=== PATIENT | female | born 1995 | race Caucasian/White ===

== ENCOUNTER 2023-11-28 07:01 | Outpatient (CLI) | payer MEDICAID, SELFPAY ==
--- NOTE | 2023-11-28 07:15 | US_ITS ---
Patient: TALIB POOL Facility:?[facility] Patient ID:?[id number] Site Patient ID:?[id number]. Site :?[id number] Study:?US-OB Pelvis dating-11/28/2023 7:37:29 AM Ordering Physician:Clarice Bennett Final Report: INDICATION: First trimester scan, establish dates. COMPARISON: None. TECHNIQUE: Real-time castellanos-scale imaging of the pelvis was performed. FINDINGS: Sonographic imaging demonstrates a single living intrauterine gestation. The embryo demonstrates a regular cardiac rate measuring 155 beats per minute. The embryo`s crown-rump length measurement of 1.7 cm corresponds to a gestational age of 8 weeks 0 days with a sonographic due date of 07/09/2024. There is a normal-appearing yolk sac. There are no gross abnormalities noted within the embryo at this early state of development. The gestational sac has a normal appearance. There is no evidence of a perigestational hemorrhage. The amount of fluid within the sac appears appropriate for gestational age. The cervix is closed. The myometrium appears normal. The ovaries are of normal size. Corpus luteal cyst right ovary measures 1.9 x 1.5 x 1.2 cm. There are no suspicious fluid collections noted in the cul-de-sac. IMPRESSION: Normal first trimester OB ultrasound exam. Gestational age calculated at 8 weeks 0 days with a sonographic due date of 07/09/2024. Dictated by Darvin Loza MD @ 11/28/2023 10:09:56 AM Signed by:?Darvin Loza MD @11/28/2023 10:09:56 AM (Electronic Signature)
== END 2023-11-28 07:02 | disposition home or self-care (01) ==
LOC: US 07:01
PROVIDERS: Visit Provider Advanced Practice Midwife
DX: Z34.91 Encounter for supervision of normal pregnancy, unspecified, first trimester (principal); Z3A.08 8 weeks gestation of pregnancy
CPT/HCPCS: 76817

== ENCOUNTER 2023-11-28 09:15 | Outpatient (CLI) | payer MEDICAID, SELFPAY | END 2023-11-28 09:16 | disposition home or self-care (01) | LOC: NFLDREF 12-18 07:12 | PROVIDERS: Visit Provider Advanced Practice Midwife | DX: Z34.91 Encounter for supervision of normal pregnancy, unspecified, first trimester (principal); Z3A.08 8 weeks gestation of pregnancy | CPT/HCPCS: 86592; 86703; 86704; 86706; 86762; 86787; 86803; 86850; 86900; 86901; 87086; 87340; 87491; 87591 ==

== ENCOUNTER 2024-01-12 09:00 | Outpatient (CLI) | payer MEDICAID, SELFPAY | END 2024-01-12 09:01 | disposition home or self-care (01) | LOC: NFLDREF 09:01 | PROVIDERS: PCP Advanced Practice Midwife; Visit Provider Advanced Practice Midwife | DX: N89.8 Other specified noninflammatory disorders of vagina (principal) | CPT/HCPCS: 87086 ==

== ENCOUNTER 2024-02-20 12:48 | Outpatient (CLI) | payer MEDICAID, SELFPAY ==
--- NOTE | 2024-02-20 13:00 | CRLHL7_ITS ---
For Patients: As a result of the Century Cures Act, medical imaging exams and procedure reports are released immediately into your electronic medical record. You may view this report before your referring provider. If you have questions, please contact your health care provider. INDICATION: Evaluate anatomy. COMPARISON: 11/28/2023 TECHNIQUE: Real time castellanos scale imaging of the fetus was performed as well as color Doppler analysis of the umbilical vessels. FINDINGS: Sonographic imaging demonstrates a single living intrauterine gestation. Fetus demonstrates a regular cardiac rate of 155 beats per minute. Fetus has a breech position. The placenta lies right anterior without evidence of placenta previa. Placental edge 5.7 cm from the internal cervical os. Amniotic fluid volume appears normal. Single deepest vertical pocket: 4.9 cm. The cervix is closed and measures 4.3 cm in length. The composite ultrasound gestational age is calculated at 19 weeks 5 days with an estimated sonographic due date of 07/11/2024. The estimated weight is 333 grams which lies at the 35th %. The following biometric measurements were obtained: Biparietal diameter: 4.4 cm/19 weeks 2 days 14th% Head circumference: 16.8 cm/19 weeks 3 days 11th% Abdominal circumference: 15.2 cm/20 weeks 3 days 48th% Femur length: 3.2 cm/20 weeks 0 day 32nd% The HC/AC ratio measures: 1.11 range (1.08-1.26) On anatomic survey, there is a normal appearance of the cerebral ventricles, cavum septi pellucidi, cisterna magna and cerebellum. The nose, lips, and facial profile appear normal. The cervical, thoracic and lumbar spine are well visualized and appear normal. There is a normal four-chamber heart view and the left and right ventricular outflow tracts appear normal. The diaphragm and stomach appear normal. The kidneys and bladder also appear normal. There is a normal three-vessel cord and cord insertion site. The four extremities appear normal. IMPRESSION: Normal OB ultrasound exam with concordance of clinical and sonographic dating. No intrinsic abnormalities noted on anatomic survey. Dictated by Darvin Loza MD @ 02/23/2024 8:48:33 AM (Electronically Signed)
== END 2024-02-20 12:49 | disposition home or self-care (01) ==
LOC: US 12:49
PROVIDERS: Visit Provider Advanced Practice Midwife
DX: Z34.92 Encounter for supervision of normal pregnancy, unspecified, second trimester (principal); Z3A.19 19 weeks gestation of pregnancy
CPT/HCPCS: 76805

== ENCOUNTER 2024-03-19 14:19 | Outpatient (CLI) | payer MEDICAID, SELFPAY | END 2024-03-19 14:20 | disposition home or self-care (01) | LOC: NFLDREF 14:20 | PROVIDERS: Visit Provider Midwife | DX: Z34.92 Encounter for supervision of normal pregnancy, unspecified, second trimester (principal); Z3A.24 24 weeks gestation of pregnancy | CPT/HCPCS: 84443 ==

== ENCOUNTER 2024-03-27 18:35 | Outpatient (CLI) | payer MEDICAID, SELFPAY ==
[2024-03-27 18:58] VITALS: PULSE 117; O2SAT 97
[2024-03-27 18:59] VITALS: BP 114/74; PULSE 114; TEMP 36.9
[2024-03-27 20:01] LABS: Appearance Urine Clear (Clear); Bilirubin Urine Negative (Negative); Blood Urine Negative (Negative); Color Urine Yellow (Yellow); Glucose Urine Negative (Negative); Ketones Urine Negative (Negative); Leukocyte Esterase Urine Negative (Negative); Nitrite Urine Negative (Negative); Protein Urine Negative (Negative); Urobilinogen Urine 0.2 (0.2-1.0); pH Urine 6.5 (5.0-8.5)
[2024-03-27 20:14] LABS: Amnisure Rom* Negative
--- NOTE | 2024-03-31 14:22 | PC.OBNST ---
NST Note NST Note Start: 03/27/24 18:49 Freq: ONCE Status: Discharge Protocol: Document 03/27/24 19:20 LAMARDDYH (Rec: 03/31/24 14:22 DAVIDYEsau Desktop) NST Note 2 Para (# of births) 0 EDC 07/07/24 Gestational Age In Weeks & Days 26 Weeks & 0 Days Patient Presented with Complaint(s) of Decreased movement Reactive Yes Appropriate for Gestational Age Yes RN Mika Roth RN Date 03/27/24 Reactive Yes Appropriate for Gestational Age Yes RN Missy Thomas RN Date 03/27/24 OB NST charge Yes Complete NST Note via Write Note Yes The provider's electronic signature indicates the NST is reactive/appropriate for gestational age. *Note to provider: If an addendum is required, open the patient's chart and click on the note under the Nurse/Allied Health tab.
== END 2024-03-27 20:40 | disposition home or self-care (01) ==
LOC: OB OUT 18:35 → OB 18:36
PROVIDERS: Visit Provider Advanced Practice Midwife
DX: J02.9 Acute pharyngitis, unspecified (principal)
CPT/HCPCS: 59025; 81003; 84112; G0463

== ENCOUNTER 2024-04-02 09:08 | Outpatient (CLI) | payer MEDICAID, SELFPAY | END 2024-04-02 09:09 | disposition home or self-care (01) | LOC: NFLDREF 04-07 13:53 | PROVIDERS: Visit Provider Advanced Practice Midwife | DX: Z34.92 Encounter for supervision of normal pregnancy, unspecified, second trimester (principal); Z3A.26 26 weeks gestation of pregnancy | CPT/HCPCS: 86592 ==

== ENCOUNTER 2024-05-06 07:35 | Outpatient (CLI) | payer MEDICAID, SELFPAY ==
[2024-05-06 08:03] VITALS: PULSE 103; O2SAT 97
[2024-05-06 08:07] VITALS: BP 118/67; PULSE 103
[2024-05-06 08:24] LABS: Appearance Urine Clear (Clear); Bilirubin Urine Negative (Negative); Blood Urine Negative (Negative); Color Urine Yellow (Yellow); Glucose Urine Negative (Negative); Ketones Urine Negative (Negative); Leukocyte Esterase Urine 2+ (Negative); Nitrite Urine Negative (Negative); Protein Urine Negative (Negative); Specific Gravity Urine 1.015 (1.000-1.030); Urobilinogen Urine 0.2 (0.2-1.0); pH Urine 7.5 (5.0-8.5)
[2024-05-06 08:39] LABS: RBC Urine 0-2 (0-2)
[2024-05-06 08:40] LABS: Amorphous Sediment Urine Few; Bacteria Urine Moderate; Squamous Epithelial Cell Urine Many (None-Few)
[2024-05-06 08:46] LABS: Clue Cells No Clue Cells Seen (None Seen); Trichomonas No Trichomonas Seen (None Seen); Yeast No Yeast Seen (None Seen)
--- NOTE | 2024-05-06 09:41 | PC.OBNST ---
NST Note NST Note Start: 05/06/24 07:46 Freq: ONCE Status: Active Protocol: Document 05/06/24 09:20 PIERCE (Rec: 05/06/24 09:40 PIERCE Desktop) NST Note 2 Para (# of births) 0 EDC 07/07/24 Gestational Age In Weeks & Days 31 Weeks & 1 Days Patient Presented with Complaint(s) of Contractions/cramping,Other Other Complaints Pt. presents with menstral like cramping yesterday/last evening and pelvic pressure/ pain (has been feeling this for a couple weeks) Reactive Yes Appropriate for Gestational Age Yes CARLOS Avelar Date 05/06/24 Reactive Yes Appropriate for Gestational Age Yes CARLOS Florez RN Date 05/06/24 OB NST charge Yes Complete NST Note via Write Note Yes The provider's electronic signature indicates the NST is reactive/appropriate for gestational age. *Note to provider: If an addendum is required, open the patient's chart and click on the note under the Nurse/Allied Health tab.
== END 2024-05-06 09:25 | disposition home or self-care (01) ==
LOC: OB OUT 07:36 → OB 07:37
PROVIDERS: Visit Provider Advanced Practice Midwife
DX: O47.03 False labor before 37 completed weeks of gestation, third trimester (principal); Z3A.31 31 weeks gestation of pregnancy
CPT/HCPCS: 59025; 81001; 81003; 87086; 87210; G0463

== ENCOUNTER 2024-05-14 11:33 | Outpatient (CLI) | payer MEDICAID, SELFPAY ==
--- NOTE | 2024-05-14 11:30 | CRLHL7_ITS ---
For Patients: As a result of the Century Cures Act, medical imaging exams and procedure reports are released immediately into your electronic medical record. You may view this report before your referring provider. If you have questions, please contact your health care provider. INDICATION: Third trimester scan, evaluate growth. large for dates, ADHD meds COMPARISON: 02/20/2024 TECHNIQUE: Real time castellanos scale imaging of the fetus was performed. FINDINGS: Sonographic imaging demonstrates a single living intrauterine gestation. Fetus demonstrates a regular cardiac rate of 150 beats per minute. Fetus has a vertex position. The placenta lies posteriorly. Amniotic fluid volume appears normal and there is a single deepest vertical pocket: 6.7 cm. The estimated weight is 2422gm which lies at the 95th %. On the prior OB ultrasound exam dated 02/20/2024 the estimated weight was at the 35th%. BPD 85th percentile. HC 83rd percentile. AC greater than 97th percentile. FL 62nd percentile. The HC/AC ratio measures 1.01 range (0.94-1.11). IMPRESSION: Sonographic gestational age 34 weeks 2 days and a sonographic due date of 06/23/2024. Sonographic age 2 weeks ahead of the clinical age. Estimated weight 95th percentile. Abdominal circumference greater than 97th percentile. Dictated by Darvin Loza MD @ 05/14/2024 1:42:01 PM (Electronically Signed)
== END 2024-05-14 11:34 | disposition home or self-care (01) ==
LOC: US 11:34
PROVIDERS: Visit Provider Advanced Practice Midwife
DX: O36.63X0 Maternal care for excessive fetal growth, third trimester, not applicable or unspecified (principal); O99.343 Other mental disorders complicating pregnancy, third trimester; F90.9 Attention-deficit hyperactivity disorder, unspecified type; Z3A.34 34 weeks gestation of pregnancy
CPT/HCPCS: 76816

== ENCOUNTER 2024-05-24 13:00 | Outpatient (CLI) | payer MEDICAID, SELFPAY | END 2024-05-24 13:01 | disposition home or self-care (01) | LOC: NFLDREF 05-27 07:52 | PROVIDERS: Visit Provider Advanced Practice Midwife | DX: N39.0 Urinary tract infection, site not specified (principal) | CPT/HCPCS: 87086 ==

== ENCOUNTER 2024-05-24 14:02 | Outpatient (CLI) | payer MEDICAID, SELFPAY ==
[2024-05-24 14:25] VITALS: BP 122/80; PULSE 112; TEMP 36.6
[2024-05-24 14:26] VITALS: PULSE 114; O2SAT 98
[2024-05-24 14:42] LABS: Hemoglobin* 12.6 gm/dL (12.0-16.0)
[2024-05-24 15:09] VITALS: PULSE 100; O2SAT 100
--- NOTE | 2024-05-24 15:26 | CRLHL7_ITS ---
For Patients: As a result of the Cures Act, medical imaging exams and procedure reports are released immediately into your electronic medical record. You may view this report before your referring provider. If you have questions, please contact your health care provider. Indication: NON-REACTIVE NST BUTCH: 07/07/2024. Technique: Real-time sonographic images of the pelvis were obtained transabdominally using grayscale, color, and Doppler imaging. Comparison: Report 05/14/2024. Findings: A single intrauterine is present in cephalic position. Cardiac activity in the fetus is demonstrated at 134 BPM. Placenta: Anterior and posterior, suspected succenturiate lobe. No previa or abruption. Amniotic Fluid: Single deepest pocket measures 7.2 centimeter. Biophysical profile: Breathin/2 Movement: 2/2 Tone: 2/2 Fluid volume: 2/2 Total: 02/18 Impression: 1. Single living intrauterine gestation in cephalic presentation, with heartrate 134 BPM. 2. Possible succenturiate placenta without previa or abruption. 3. Amniotic fluid with single deepest pocket measuring 7.2 centimeter. 4. BPP /. Dictated by Michael Ortiz MD @ 05/24/2024 5:51:23 PM (Electronically Signed)
--- NOTE | 2024-05-24 16:25 | P.OBLDTN_ITS ---
OB - Triage/Final Diagnosis Visit Information Date Seen: 05/24/24 Date of evaluation: 05/24/24 Narrative: The patient is a 28 year old 2 para 0010 at 33w5d weeks gestation by LMP confirmed by first tri US, who presents for surveillance. She was seen in clinic today and persistent tachycardia was audible. The provider also noted an irregular heart beat. This prompted a NST that was consistent with tachycardia with possible decelerations. She arrived here with undetermined baseline and requested continued monitoring. Ashia has noted occasion intermittent cramping. No dysuria, vaginitis symptoms. No fever. She does vape and has been trying to cut back. She was vaping just prior to arriving at the clinic. HGB will be drawn here in triage. UA run in clinic. problems: # Obesity, NOB BMI 38.4 A1C: 4.9 Consider weekly BPP/NST at 37 weeks taking baby ASA # ADHD. On Vyvanse, stopped Adderall with +UPT. Offer growth US 32w or sooner as indicated: LGA 94.6% with HC 83%, AC >97%--LGA #LGA EFW 94.6% with HX 83%, AC >97% measuring ahead at 33.5 wks follow up US 36 weeks # Smoker. Quit cigarettes but still vaping. Encouraged Vit C. # Asymptomatic tachycardia. Has had a negative workup in the past. LGA (large for gestational age) fetus (Acute) Fatigue (Acute) ?R53.83 - Other fatigue (ICD-10) (Acute) ?Z34.90 - Encounter for supervision of normal , unspecified, unspec ified trimester (ICD-10)Obesity (BMI 30-39.9) (Acute) ?E66.9 - Obesity, unspecified (ICD-10)Symptomatic tachycardia (Acute) Has never been symptomatic. Has been worked up in the past. ?R00.0 - Tachycardia, unspecified (ICD-10)ADHD (Acute) Quit Adderall with +UPT, on Vyvanse ?F90.9 - Attention-deficit hyperactivity disorder, unspecified type (ICD- 10)Tobacco abuse (Acute) quit cigarettes but still vaping ?Z72.0 - Tobacco use (ICD-10)Vapes nicotine containing substance (Acute) ?Z72.0 - Tobacco use (ICD-10) ASSESSMENT: 28yo at 33w5d weeks gestation complicated by: Vaping, ADHD, Obesity, LGA Eventually Reactive NST with normal baseline BPP 04/22 PLAN: 1. discharge to home 2. Enc cessation of vaping with support given 3. continue plan for surveillance 4. Pt agrees with plan and has no furhter questions. Reason for evaluation: other (equivocal NST) Evaluation Laboratory results: Laboratory Tests 05/24/24 Range/Units 14:35 Hgb 12.6 (12.0-16.0) gm/dL Vital signs: Vital Signs - 24 hr 05/24/24 14:25 05/24/24 14:26 05/24/24 15:09 Temperature 97.9 F Pulse Rate 112 H Blood Pressure 122/80 Pulse Oximetry 98 100 Comments: Vitals Reviewed Constitutional:? Alert and oriented x3 HEENT:? Normocephalic, atraumatic Neck:? Supple Lungs:? Clear to auscultation bilaterally Heart:? Regular rate and rhythm, no murmur, rub or gallop Abdomen:? Soft, nontender, and gravid. Vertex by Jesus's. Extremities:? No edema or erythema NST: 125 bpm/moderate variability/accelerations present/decelerations abse nt/contractions irregular irritability Final Diagnosis (1) Obesity (BMI 30-39.9): Status: Acute (2) : Status: Acute (3) LGA (large for gestational age) fetus: Status: Acute (4) Vapes nicotine containing substance: Status: Acute (5) ADHD: Status: Acute Problem details: Quit Adderall with +UPT, on Vyvanse (6) Non-reassuring electronic monitoring tracing: Status: Acute
--- NOTE | 2024-05-24 17:09 | PC.OBNST ---
NST Note NST Note Start: 05/24/24 14:24 Freq: ONCE Status: Active Protocol: Document 05/24/24 16:55 HCR (Rec: 05/24/24 17:08 HCR [id number]) NST Note 2 Para (# of births) 0 EDC 07/07/24 Gestational Age In Weeks & Days 33 Weeks & 5 Days Patient Presented with Complaint(s) of Other Other Complaints Sent from clinic for further monitoring. Reactive Yes Appropriate for Gestational Age Yes CARLOS Corbin RN Date 05/24/24 Reactive Yes Appropriate for Gestational Age Yes CARLOS Fischer CNM Date 05/24/24 OB NST charge Yes Complete NST Note via Write Note Yes The provider's electronic signature indicates the NST is reactive/appropriate for gestational age. *Note to provider: If an addendum is required, open the patient's chart and click on the note under the Nurse/Allied Health tab.
== END 2024-05-24 16:59 | disposition home or self-care (01) ==
LOC: OB OUT 14:03 → OB 14:04
PROVIDERS: Advanced Practice Midwife; Visit Provider Midwife
DX: O36.8390 Maternal care for abnormalities of the fetal heart rate or rhythm, unspecified trimester, not applicable or unspecified (principal); Z3A.33 33 weeks gestation of pregnancy
CPT/HCPCS: 36415; 59025; 76819; 85018; G0463

== ENCOUNTER 2024-06-07 09:13 | Outpatient (CLI) | payer MEDICAID, SELFPAY ==
--- NOTE | 2024-06-07 09:15 | CRLHL7_ITS ---
For Patients: As a result of the Century Cures Act, medical imaging exams and procedure reports are released immediately into your electronic medical record. You may view this report before your referring provider. If you have questions, please contact your health care provider. INDICATION: Third trimester scan, evaluate growth. Large for gestational age. COMPARISON: 05/24/2024 TECHNIQUE: Real time castellanos scale imaging of the fetus was performed. FINDINGS: Sonographic imaging demonstrates a single living intrauterine gestation. Fetus demonstrates a regular cardiac rate of 142 beats per minute. Fetus has a vertex position. The placenta lies posteriorly. Amniotic fluid volume appears normal and there is a single deepest vertical pocket: 6.5 cm. The estimated weight is 3009gm which lies at the 77th %. On the prior OB ultrasound exam dated 05/14/2024 the estimated weight was at the 95th%. BPD 84th percentile. HC 57th percentile. AC 96th percentile. FL 10th percentile. The HC/AC ratio measures 0.97 range (0.92-1.06). IMPRESSION: Sonographic gestational age 36 weeks 4 days and sonographic due date 07/01/2024. Sonographic age 6 days ahead of the clinical age. Estimated weight 77th percentile. Abdominal circumference is 96th percentile. Dictated by Darvin Loza MD @ 06/07/2024 10:14:06 AM (Electronically Signed)
== END 2024-06-07 09:14 | disposition home or self-care (01) ==
LOC: US 09:14
PROVIDERS: Visit Provider Advanced Practice Midwife
DX: O36.63X0 Maternal care for excessive fetal growth, third trimester, not applicable or unspecified (principal); Z3A.36 36 weeks gestation of pregnancy
CPT/HCPCS: 76816

== ENCOUNTER 2024-06-07 11:14 | Outpatient (CLI) | payer MEDICAID, SELFPAY ==
[2024-06-08 08:15] LABS: Strep B DNA Probe Negative (Negative)
[2024-06-08 09:07] LABS: Strep B Susceptibility Needed? No
== END 2024-06-07 11:15 | disposition home or self-care (01) ==
PROVIDERS: Visit Provider Midwife
DX: O36.63X0 Maternal care for excessive fetal growth, third trimester, not applicable or unspecified (principal); Z3A.36 36 weeks gestation of pregnancy
CPT/HCPCS: 82565; 82570; 84156; 84450; 84460; 84520; 84550; 87081; 87653

== ENCOUNTER 2024-06-09 13:08 | Outpatient (CLI) | payer MEDICAID, SELFPAY ==
[2024-06-09 13:24] VITALS: PULSE 120; O2SAT 97
[2024-06-09 13:29] VITALS: PULSE 120; O2SAT 98
[2024-06-09 13:33] VITALS: BP 120/69; PULSE 118
[2024-06-09 13:34] VITALS: PULSE 117; RESP 18; TEMP 36.8; O2SAT 97
[2024-06-09 13:48] VITALS: BP 112/64; PULSE 107
[2024-06-09] MEDS: METOCLOPRAMIDE 10 MG TABLET PO (13:58)
[2024-06-09] MEDS: ACETAMINOPHEN 500 MG TABLET 1000 MG PO (13:58)
[2024-06-09 14:19] VITALS: BP 107/75; PULSE 99
--- NOTE | 2024-06-09 15:39 | PC.OBNST ---
NST Note NST Note Start: 06/09/24 13:12 Freq: ONCE Status: Active Protocol: Document 06/09/24 15:33 PIERCE (Rec: 06/09/24 15:39 PIERCE Desktop) NST Note 2 Para (# of births) 0 EDC 07/07/24 Gestational Age In Weeks & Days 36 Weeks & 0 Days High Risk Factors High Blood Pressure - Gestational Patient Presented with Complaint(s) of Headache Other Complaints Pt. has newly diagnosed Pre E on Thursday 06/07. Suffers from frequent persistent Headache and complains of GARCIA today. Pt. had gotten a BP of 125/97 and 128/96 at home today. We have discussed using a larger cuff . Reactive Yes Appropriate for Gestational Age Yes CARLOS Avelar Date 06/09/24 Reactive Yes Appropriate for Gestational Age Yes CARLOS Hayes Date 06/09/24 OB NST charge Yes Complete NST Note via Write Note Yes The provider's electronic signature indicates the NST is reactive/appropriate for gestational age. *Note to provider: If an addendum is required, open the patient's chart and click on the note under the Nurse/Allied Health tab.
== END 2024-06-09 15:13 | disposition home or self-care (01) ==
LOC: OB OUT 13:09 → OB 13:09
PROVIDERS: Visit Provider Advanced Practice Midwife
DX: O10.913 Unspecified pre-existing hypertension complicating pregnancy, third trimester (principal); R51.9 Headache, unspecified; O14.93 Unspecified pre-eclampsia, third trimester; Z3A.36 36 weeks gestation of pregnancy
CPT/HCPCS: 59025; G0463; A9270

== ENCOUNTER 2024-06-11 13:35 | Outpatient (CLI) | payer MEDICAID, SELFPAY ==
--- NOTE | 2024-06-11 13:45 | CRLHL7_ITS ---
For Patients: As a result of the Cures Act, medical imaging exams and procedure reports are released immediately into your electronic medical record. You may view this report before your referring provider. If you have questions, please contact your health care provider. OB BIOPHYSICAL PROFILE, 06/11/2024 CLINICAL HISTORY: HTN. BUTCH by LMP: 07/07/24. GA: 36 weeks, 2 days. COMPARISON: 06/07/24, 05/24/24. TECHNIQUE: Transabdominal. FINDINGS: Cervix: Not visualized. positioning: Vertex. Amniotic fluid: 6.2 cm. Placenta: Transabdominal. Dopplers: heart rate: 157 bpm. Biophysical Profile: Total score: 8 Gross body movements: 2 tone: 2 Respiratory activity: 2 Amniotic fluid: 2 IMPRESSION: 1. Normal biophysical profile score of 8/8. 2. There appears to be an anterior succenturiate lobe of the placenta as noted on the 05/24/2024 biophysical profile. Aravind Young M.D. Body/Diagnostic Radiologist [employer] [email or web address] Transcribed: 1:06 pm DW/Dictated by: Aravind Young MD @ 06/15/2024 11:11:00 AM (Electronically Signed)
== END 2024-06-11 13:36 | disposition home or self-care (01) ==
LOC: US 13:36
PROVIDERS: Visit Provider Advanced Practice Midwife
DX: O14.93 Unspecified pre-eclampsia, third trimester (principal); Z3A.36 36 weeks gestation of pregnancy
CPT/HCPCS: 76816; 76819

== ENCOUNTER 2024-06-14 14:14 | Outpatient (CLI) | payer MEDICAID, SELFPAY ==
[2024-06-14 14:16] VITALS: PULSE 117; O2SAT 100
[2024-06-14 14:33] VITALS: BP 125/77; PULSE 111
[2024-06-14 15:29] VITALS: BP 130/84; PULSE 96
[2024-06-14 15:37] LABS: Hemoglobin* 12.3 gm/dL (12.0-16.0); Mean Corpuscular HGB Conc 33 gm/dL (32-36); Mean Corpuscular Hemoglobin 29 pg (26-34); Mean Corpuscular Volume 88 fL (80-100); Platelet Count* 251 K/uL (140-440); Red Blood Count 4.21 m/uL (4.00-5.20); White Blood Count* 14.05 K/uL (4.50-11.00)
[2024-06-14 15:45] LABS: Slide Review Reflex No
[2024-06-14 15:57] LABS: Creatinine* 0.5 mg/dL (0.5-1.5); Estimated Glomerular Filt Rate 130 ml/min
[2024-06-14 15:58] LABS: Alanine Aminotransferase* 11 U/L (4-35); Aspartate Amino Transferase* 17 U/L (12-35); Blood Urea Nitrogen* 7 mg/dL (5-24)
[2024-06-14 16:02] LABS: Creatinine Urine 11.3 mg/dL; Protein Creatinine Ratio Urine 1.24 (0-0.19); Total Protein Urine 14 mg/dL
[2024-06-14 16:14] VITALS: BP 119/84; PULSE 107
[2024-06-14] MEDS: ACETAMINOPHEN 500 MG TABLET 1000 MG PO (16:38)
--- NOTE | 2024-06-14 16:46 | PC.OBNST ---
NST Note NST Note Start: 06/14/24 14:24 Freq: ONCE Status: Active Protocol: Document 06/14/24 14:24 [facility] (Rec: 06/14/24 16:45 [facility] No Response) NST Note 2 Para (# of births) 0 EDC 07/07/24 Gestational Age In Weeks & Days 36 Weeks & 5 Days High Risk Factors High Blood Pressure - Gestational Patient Presented with Complaint(s) of Headache Other Complaints tachycardic FHR in clinic Reactive Yes Appropriate for Gestational Age Yes RN Case RN Date 06/14/24 Reactive Yes Appropriate for Gestational Age Yes RN Cuddy RN Date 06/14/24 OB NST charge Yes Complete NST Note via Write Note Yes The provider's electronic signature indicates the NST is reactive/appropriate for gestational age. *Note to provider: If an addendum is required, open the patient's chart and click on the note under the Nurse/Allied Health tab.
== END 2024-06-14 16:50 | disposition home or self-care (01) ==
LOC: OB OUT 14:15 → OB 14:15
PROVIDERS: Visit Provider Advanced Practice Midwife
DX: O13.3 Gestational [pregnancy-induced] hypertension without significant proteinuria, third trimester (principal); Z3A.36 36 weeks gestation of pregnancy
CPT/HCPCS: 36415; 59025; 82565; 82570; 84156; 84450; 84460; 84520; 85027; G0463; A9270

== ENCOUNTER 2024-06-17 14:09 | Inpatient (IN) | payer MEDICAID, SELFPAY ==
[2024-06-17] VITALS (18 sets, daily range): BP systolic 116–134; BP diastolic 60–90; PULSE 75–126; RESP 16–20; TEMP 36.7–36.8; O2SAT 98–100; BMI 44.5
--- NOTE | 2024-06-17 15:05 | P.LDBA_ITS ---
Subjective History of Present Illness Date Seen: 06/17/24 Narrative: Patient is being admitted to Labor and Delivery for gross ROM at term. She is a 28 year old at 37w1d gestation. She was scheduled for an IOL for Pre- eclampsia later this evening. Her full history and physical was dictated by Dr. Bee on 06/14/2024. Please see this for details. She was diagnosed with pre- eclampsia prenatally and has been stable. She has been having GARCIA, treated with Tylenol and Reglan, but she believes they are related to her worsening eyesight in and she has not been wearing her glasses. She also reports an aura of crystals/prisms in her vision x 1 minute yesterday that resolved spontaneously. See problem list below. Specific Issues/Plans H&P done by Jp Amin CNM on 06/14/24 #Preeclampsia: Checking BP at home Twice weekly NST/BPP weekly Pre-e labs-last done 06/07 growth US done 06/07-see below IOL recommended at 37w-please schedule next visit # Obesity, NOB BMI 38.4 A1C: 4.9 Consider weekly BPP/NST at 37 weeks taking baby ASA # ADHD. On Vyvanse, stopped Adderall with +UPT. Offer growth US 32w or sooner as indicated: LGA 94.6% with HC 83%, AC >97% --LGA #LGA EFW 94.6% with HX 83%, AC >97% measuring ahead at 33.5 wks 06/07/2024: 35w5d US shows 77% EFT, AC>97% # Smoker. Quit cigarettes but still vaping. Encouraged Vit C. # Asymptomatic tachycardia. Has had a negative workup in the past. # Possible succenturiate placenta without previa or abruption. Seen on BPP US at 33.5wks anterior succenturiate lobe of the placenta seen with BPP on 06/14 TDAP: 05/14/24 Flu: declined Covid: declined RSV: at 32 weeks PHQ9/GAD7: Hgb: GBS: H&P: OB - Problem Based A/P Additional Plan (1) Preeclampsia: Status: Acute (2) LGA (large for gestational age) fetus: Status: Acute (3) : Status: Acute (4) Obesity (BMI 30-39.9): Status: Acute (5) ADHD: Problem details: Quit Adderall with +UPT, on Vyvanse Status: Acute (6) Tobacco abuse: Problem details: quit cigarettes but still vaping Status: Acute (7) Thin meconium stained amniotic fluid: Status: Acute Plan ASSESSMENT:?? 28 at 37w1d gestation?? complicated by:??Preeclampsia, Elevated BMI, LGA, ADHD, Nicotine use, thin MEC Labor type: SROM with augmentation, Not yet in labor?? Category 1 FHR pattern.??? Labor complicated by: thin mec, pre-e, LGA, Vyvanse use?? GBS negative ?? PLAN:?? 1. Routine intrapartum cares as ordered. Augmentation with pitocin for Pre-e after giving option of oral misoprostal also. Since ruptured, pitocin is as effective even if not yet ripe cervix. 2. Monitoring per policy, continuous 3. Planning medicated . Candidate for analgesia of choice.??? 4. Patient encouraged to reposition and ambulate to promote physiologic labor and .?? 5. Peds to be notified of thin mec, pre-e, LGA, Vyvanse use? 6. Anticipate , Dr Jiang aware patient is here with normal BP thus far and SROM thin mec. OB Result Labs Blood Type: O (+) positive Rubella: immune RPR/VDLR: nonreactive GBS Status: negative HBsAG: negative OB Exam Physical Exam Vital signs: Pulse BP Pulse Ox 111 H 117/69 99 06/17/24 14:32 06/17/24 14:32 06/17/24 14:25 Narrative: Vitals Reviewed Constitutional:? Alert and oriented x3 HEENT:? Normocephalic, atraumatic Neck:? Supple Lungs:? Clear to auscultation bilaterally Heart:? Regular rate and rhythm, no murmur, rub or gallop Abdomen:? Soft, nontender, and gravid. Vertex by Jesus's. Extremities:? No edema or erythema Cervix: deferred due to gross rupture NST: 135 bpm/moderate variability/accelerations present/decelerations absent/irregular contractions not felt by patient
[2024-06-17] MEDS: METOCLOPRAMIDE 10 MG TABLET PO (15:06)
[2024-06-17] MEDS: ACETAMINOPHEN 500 MG TABLET 1000 MG PO (15:06)
[2024-06-17 15:39] LABS: Basophils Percent Auto 0.3 % (0.0-3.0); Eosinophils Percent Auto 0.9 % (0.0-7.0); Hematocrit 36.2 % (33.0-51.0); Hemoglobin* 12.1 gm/dL (12.0-16.0); Immature Granulocytes Pct Auto 1.3 %; Lymphocytes Percent Auto 18.6 % (20-44); Mean Corpuscular HGB Conc 33 gm/dL (32-36); Mean Corpuscular Hemoglobin 29 pg (26-34); Mean Corpuscular Volume 86 fL (80-100); Monocytes Percent Auto 7.4 % (0.0-11.0); Neutrophils Percent Auto 71.5 % (42.0-72.0); Platelet Count* 273 K/uL (140-440); RDW Coefficient of Variation % 12.8 % (11.5-15.5); White Blood Count* 11.52 K/uL (4.50-11.00)
[2024-06-17 15:44] LABS: Slide Review Reflex No
[2024-06-17 15:53] LABS: Alanine Aminotransferase* 14 U/L (4-35); Aspartate Amino Transferase* 27 U/L (12-35); Blood Urea Nitrogen* 9 mg/dL (5-24); Creatinine* 0.5 mg/dL (0.5-1.5); Est. Creatinine Clearance* 155.42; Estimated Glomerular Filt Rate 130 ml/min
[2024-06-17] MEDS: OXYTOCIN 30 unit/500 ML in NS 30 UNIT/500 ML BAG IVPB (16:19)
[2024-06-17] MEDS: LACTATED RINGERS 1000 ML 1,000 ML 125 ML IV ×2 (16:20→23:34)
[2024-06-17] MEDS: hydrOXYzine pamoate 25 MG CAPSULE 100 MG PO (20:30)
[2024-06-17] MEDS: MORPHINE 10 MG/ML inj IM (23:06)
[2024-06-18] VITALS (81 sets, daily range): BP systolic 91–155; BP diastolic 57–96; PULSE 60–121; RESP 16–18; TEMP 36.6–37.2; O2SAT 93–100
--- NOTE | 2024-06-18 00:23 | PM.OBPNL ---
Subjective Date Seen: 06/18/24 Narrative: Jennifer is a 28 yo at 37w2d here for SROM (thin mec) for preeclampsia. She was scheduled for IOL, but came in ruptured. BP was initially normotensive but has increased with mild range elevations. Labs on admit were normal, but PCR was not drawn since patient was grossly ruptured. She has no new GARCIA, vision changes or RUQ pain. Last PCR was 1.24 on 06/14/2024. Jennifer is feeling contractions, but coping well, but feels like she has to have a BM. Gabriel is supportive at the bedside. She is planning to have an epidural at some point. Objective Exam: Objective: Constitutional: Alert and oriented x3, [mild/moderate/severe] distress, coping well Vital signs stable, see nurse documentation Abdomen: gravid, contractions palpate mild with contractions and soft between Cervix: 3.5 cm/90%/-1 station/vertex NST: 130 bpm/moderate variability/accelerations present/decelerations absent/contractions irregular Vital Signs: Last Vital Signs Temp 98.1 F 06/18/24 00:08 Pulse 60 06/18/24 00:08 Resp 20 06/17/24 19:49 BP 141/86 H 06/18/24 00:08 Pulse Ox 98 06/17/24 15:57 Plan Plan: ASSESSMENT:?? 28 at 37w2d gestation?? complicated by:??Preeclampsia, Elevated BMI, LGA, ADHD, Nicotine use, thin MEC Labor type: SROM with augmentation, Not yet in active labor?? Category 1 FHR pattern.??? Labor complicated by: thin mec, pre-e, LGA, Vyvanse use, mild BP elevations? GBS negative ?? PLAN:?? 1. Routine intrapartum cares as ordered. Pitocin currently at 8mu/min 2. Monitoring per policy, continuous 3. Planning medicated . Candidate for analgesia of choice.??? 4. Patient encouraged to reposition and ambulate to promote physiologic labor and .?? 5. Peds has been notified of thin mec, pre-e, LGA, Vyvanse use? 6. Anticipate
[2024-06-18] MEDS: ROPIVACAINE 0.2% 100 ml 100 ML 12 MG EPIDURAL ×2 (01:31→08:15)
[2024-06-18] MEDS: LIDOCAINE 2% (PF) 5 ML VIAL EPIDURAL (01:32)
--- NOTE | 2024-06-18 01:43 | PM.ANBPRC ---
[facility] Medical History Preeclampsia ?O14.90 - Unspecified pre-eclampsia, unspecified trimester (ICD-10) ADHD ?F90.9 - Attention-deficit hyperactivity disorder, unspecified type (ICD-10) Vapes nicotine containing substance ?Z72.0 - Tobacco use (ICD-10) Tobacco abuse ?Z72.0 - Tobacco use (ICD-10) Symptomatic tachycardia ?R00.0 - Tachycardia, unspecified (ICD-10) Obesity (BMI 30-39.9) ?E66.9 - Obesity, unspecified (ICD-10) Surgical History History of placement of ear tubes ?Z96.22 - Myringotomy tube(s) status (ICD-10) [place] teeth extracted ?K08.409 - Partial loss of teeth, unspecified cause, unspecified class (ICD-10) History of tonsillectomy and adenoidectomy ?Z90.89 - Acquired absence of other organs (ICD-10) Family History Brother Alcohol dependence Maternal Grandmother Breast cancer Mother Skin cancer Social History Narrative: SOCIAL 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 Caffeine: occasional, pop Drug Use: Denies past/present Chicken Pox: Yes as a child MRSA: Denies What is your current living situation?: I presently have a place to live Problems where you live: no known problems In the past 12 months, utilities in danger of being shut off: no In the past 12 mos, have been you worried that your food would run out before you had money to buy more?: never true In the past 12 mos, the food you bought just didn't last and you didn't have money to buy more?: never true Smoking Status: Former smoker How often does anyone, including family, friends and others, physically hurt you: never How often does anyone, including family, friends and others, insult or talk down to you: never How often does anyone, including family, friends and others, threaten you with harm: never How often does anyone, including family, friends and others, scream or curse at you: never Meds Home Medications and Allergies Home Medications ?Medication ?Instructions ?Recorded ?Confirmed ?Type PNV 153-FA 400 mcg-om3 35 mg-dha tab PO DAILY 11/28/23 06/14/24 History 25 mg-epa 5 mg-fish oil chew tablet ( Gummies) lisdexamfetamine 30 mg capsule 40 mg PO QDAY 11/28/23 06/17/24 History ascorbic acid (vitamin C) 500 mg 500 mg PO .QS 12/19/23 06/17/24 History capsule docusate sodium 50 mg capsule 50 mg PO QDAY 12/19/23 06/17/24 History (Stool Softener) aspirin 81 mg chewable tablet 81 mg PO QDAY 01/12/24 06/17/24 History magnesium 250 mg tablet 250 mg PO QDAY 01/16/24 06/17/24 History acetaminophen 500 mg tablet 500 mg PO Q6H PRN 06/11/24 06/17/24 History (Tylenol Extra Strength) Allergies Allergy/AdvReac Type Severity Reaction Status Date / Time nitrofurantoin (From Allergy Intermediate Anaphylaxis Verified 06/14/24 14:42 Macrobid) Results Labs Labs: Laboratory Results - last 24 hr 06/17/24 06/17/24 15:21 15:24 WBC 11.52 H RBC 4.20 Hgb 12.1 Hct 36.2 MCV 86 MCH 29 MCHC 33 RDW Coeff of Francisco 12.8 Plt Count 273 Neut % (Auto) 71.5 Lymph % (Auto) 18.6 L [place] % (Auto) 7.4 Eos % (Auto) 0.9 Baso % (Auto) 0.3 Neut # (Auto) 8.20 H Lymph # (Auto) 2.10 [place] # (Auto) 0.90 Eos # (Auto) 0.10 Baso # (Auto) 0.00 Abs Immat Gran (auto) 0.10 Imm/Tot Granulo (auto) 1.3 BUN 9 Creatinine 0.5 Estimated Creat Clear 155.42 Estimated GFR 130 AST 27 ALT 14 Blood Type O Positive Antibody Screen NEGATIVE Vital Signs Vital Signs: Last Vital Signs Temp 98.1 F 06/18/24 00:08 Pulse 98 06/18/24 01:41 Resp 20 06/17/24 19:49 BP 130/64 06/18/24 01:41 Pulse Ox 100 06/18/24 01:42 Weight: 125.191 kg Height: 167.64 cm Anesthesia Procedures Epidural Insertion Patient Location: OB Start Time: : Stop Time: 02:02 Start Date: 06/18/24 Stop Date: 06/18/24 Reason for Block: procedure for pain Patient Position: sitting Performed By: Teresa Ortiz Preanesthetic Checklist: IV checked, risks and benefits discussed, monitors and equipment checked, pre-op evaluation, timeout performed and anesthesia consent Prep: chlorhexidine gluconate Monitoring: blood pressure monitoring, continuous pulse oximetry and heart rate Approach: midline Vertebral Space: lumbar (1-5) Epidural Technique: JOLYNN saline Needle Type: Tuohy needle Injection Technique: continuous catheter (continuous catheter) Needle gauge: 17 Needle Length (cm): 10 cm Needle Insertion Depth (cm): 8 Catheter Gauge: 19 Catheter Type: multi-orifice Catheter at skin depth (cm): 15 Test Dose Result: negative and lidocaine 1.5% with epinephrine 1 to 200,000
[2024-06-18] MEDS: CALCIUM CARBONATE 500 MG CHEW PO ×4 (01:46→07:33)
[2024-06-18] MEDS: PHENYLEPHRINE 100 MCG/ML SYRINGE IVP (02:43)
[2024-06-18] MEDS: ACETAMINOPHEN 500 MG TABLET 1000 MG PO ×3 (05:32→22:24)
[2024-06-18] MEDS: METOCLOPRAMIDE 10 MG TABLET PO (05:32)
[2024-06-18] MEDS: LACTATED RINGERS 1000 ML 1,000 ML 125 ML IV (06:37)
--- NOTE | 2024-06-18 07:19 | PM.OBPNL ---
Subjective Date Seen: 06/18/24 Narrative: ?Jennifer is coping well with labor pain/contractions. Her epidural was recently rebolused and she is comfortable at this time. ?Gabriel is with her for support. ?She would like to continue with her epidural for comfort and pain management.?She is not having any pressure with contractions at this time. Objective Exam: VSS, afebrile General Appearance:? Calm, cooperative. ?No acute distress. ? Psychiatric Exam: Alert and oriented, appropriate affect Abdomen: Gravid Ctx: ?Q 2-3 min apart. ? ? ?Strong FHTs: ?Baseline: 135. ? ? Variability: moderate. ?Accels: +. ? ?Decels: ?-. SVE: anterior rim/100/0 bloody show Membranes: ?SROM ?X 18 hours Vital Signs: Last Vital Signs Temp 98.6 F 06/18/24 06:45 Pulse 102 H 06/18/24 07:15 Resp 20 06/17/24 19:49 BP 125/69 06/18/24 07:15 Pulse Ox 100 06/18/24 02:12 Assessment Assessment: active labor and induction ongoing Amniotic Membrane Status: SROM Status: Category l Plan Plan: Assessment:?? at 37.2 weeks gestation?? GBS negative Patient is coping well with challenges of labor.?? Labor type: Augmented, Active labor? Category 1 FHR pattern.? complicated by: Preeclampsia, Elevated BMI, LGA, ADHD, Nicotine use, thin MEC Labor type: SROM with augmentation, now in active labor Category 1 FHR pattern.??? Labor complicated by: thin mec, pre-e, LGA, Vyvanse use, mild BP elevations? GBS negative Plan:?? Continue with routine intrapartum cares as ordered.?? Patient encouraged to move and change positions to promote physiologic labor and .?? Epidural infusing per Anesthesia orders Anticipate progress to NVD. ?
--- NOTE | 2024-06-18 10:18 | PM.OBPNL ---
Subjective Time Seen by Provider: 10:18 Date Seen: 06/18/24 Narrative: ?Jennifer is coping with labor pain/contractions although she has not had good pain control over the last hour and complains of lower abdominal pain and back pain. ?Woo is with her for support. ?She would like to continue with her epidural for comfort and pain management.?Requested OB to come to bedside to evaluate if they can help turn baby, Jennifer has been pushing for 2 hours with good effort. position by exam feels persistently OT. Multiple position changes without change in station or position over the last hour. Objective Exam: VSS, afebrile General Appearance:? Calm, cooperative. ?No acute distress. ? Psychiatric Exam: Alert and oriented, appropriate affect Abdomen: Gravid Ctx: ?Q 3-5 min apart. ? ? ?Strong FHTs: ?Baseline: 135. ? ? Variability: moderate. ?Accels: +. ? ?Decels: ?-. SVE: 10/100/+1 Membranes: ?SROM thin mec at 1315 n 06/17/24 Vital Signs: Last Vital Signs Temp 98.1 F 06/18/24 07:35 Pulse 71 06/18/24 10:14 Resp 20 06/17/24 19:49 BP 141/85 H 06/18/24 10:14 Pulse Ox 98 06/18/24 10:05 Assessment Amniotic Membrane Status: SROM Status: Category l Plan Plan: Assessment:?? at 37.2 weeks gestation?? GBS neg Patient is coping with challenges of labor.?? Labor type: Augmented, Active labor? Category 1 FHR pattern.? complicated by: complicated by: Preeclampsia, Elevated BMI, LGA, ADHD, Nicotine use, thin MEC Labor type: SROM with augmentation, now in active labor Category 1 FHR pattern.?? ? Labor complicated by: thin mec, pre-e, LGA, Vyvanse use, mild BP elevations? GBS negative, maternal exhaustion and no change in station over last hour Plan:?? Dr. Crowe consulted, fetus URSULA by US and her exam Consulting with Dr. Duff for possible forceps delivery Continue with routine intrapartum cares as ordered.?? Patient encouraged to move and change positions to promote physiologic labor and .?? Anesthesia consult for additional pain control ?
--- NOTE | 2024-06-18 10:53 | P.OBCN_ITS ---
OB - CN: HPI Date of Consult Date Seen: 06/18/24 Patient: [facility] Patient Consult date: 06/18/24 Requesting Physician: Dinah Fischer CNM Primary Care Provider: Not a Local Provider Consult Narrative Narrative: The patient is a 28 year old G 1 P 0 woman at 37 weeks, 2 days gestation that was admitted to the Center on 06/17/24 for labor. She was diagnosed with preeclampsia without severe features during her intrapartum course. I was consulted by Lowell Amin CNM, for arrest of descent in suspicion of OT presentation. At the time of my initial evaluation, the patient had been pushing for 2 hours. During the 1st hour, she had notable descent of vertex. There was no descent during the 2nd hour. She began pushing at 8:10 a.m.. She has received an epidural, but it is currently insufficient in controlling pain. Her BMI at this time is 44.5. OB Problem list #Preeclampsia: Checking BP at home Twice weekly NST/BPP weekly Pre-e labs-last done 06/07 growth US done 06/07-see below IOL recommended at 37w-please schedule next visit # Obesity, NOB BMI 38.4 A1C: 4.9 Consider weekly BPP/NST at 37 weeks taking baby ASA # ADHD. On Vyvanse, stopped Adderall with +UPT. Offer growth US 32w or sooner as indicated: LGA 94.6% with HC 83%, AC >97%--LGA #LGA EFW 94.6% with HX 83%, AC >97% measuring ahead at 33.5 wks 06/07/2024: 35w5d US shows 77% EFT, AC>97% # Smoker. Quit cigarettes but still vaping. Encouraged Vit C. # Asymptomatic tachycardia. Has had a negative workup in the past. # Possible succenturiate placenta without previa or abruption. Seen on BPP US at 33.5wks anterior succenturiate lobe of the placenta seen with BPP on 06/14 History History 1 Elective abortions Para 0 Spontaneous abortions 1 Hx # Term Pregnancies Ectopic pregnancies Hx # Pregnancies Multiple births Number of Living Children 0 Past Pregnancies Del. Date GA/Weeks Outcome Route wt Inf Gender Labor Lgth Anesthesia Location Provider Compli Unknown spontaneous Delivery Date: Last Updated by: Clarice Whitehead CNM October 2022 Labs Blood type: O (+) positive Rubella: immune RPR/VDLR: nonreactive GBS status: negative HBsAG: negative OB Labs: Lab Assessment Start: 06/17/24 14:15 Freq: ONCE Status: Active Protocol: PC.OBGBS Activity Type Activity Date Activity User E-sign Co-sign Detail Recorded Client Recorded Date Recorded By Document 06/17/24 14:18 DEON Desktop 06/17/24 14:26 DEON 06/17/24 14:18 Lab Assessment GBS Status negative GBS Additional Criteria None Is Patient Allergic to Penicillin? No Susceptibility Studies Available? None No Treatment Needed OK Are Labs Available Yes Maternal Blood Type O Maternal RH Factor Positive Evaluate Maternal Rubella Immune Status Immune Maternal HIV Status Negative Maternal Syphillis (RPR) Status Negative PFSH PFS Medical History Preeclampsia ?O14.90 - Unspecified pre-eclampsia, unspecified trimester (ICD-10) ADHD ?F90.9 - Attention-deficit hyperactivity disorder, unspecified type (ICD-10) Vapes nicotine containing substance ?Z72.0 - Tobacco use (ICD-10) Tobacco abuse ?Z72.0 - Tobacco use (ICD-10) Symptomatic tachycardia ?R00.0 - Tachycardia, unspecified (ICD-10) Obesity (BMI 30-39.9) ?E66.9 - Obesity, unspecified (ICD-10) Surgical History History of placement of ear tubes ?Z96.22 - Myringotomy tube(s) status (ICD-10) [place] teeth extracted ?K08.409 - Partial loss of teeth, unspecified cause, unspecified class (ICD- 10) History of tonsillectomy and adenoidectomy ?Z90.89 - Acquired absence of other organs (ICD-10) Family History Brother Alcohol dependence Maternal Grandmother Breast cancer Mother Skin cancer Social History Narrative: SOCIAL 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 Caffeine: occasional, pop Drug Use: Denies past/present Chicken Pox: Yes as a child MRSA: Denies What is your current living situation?: I presently have a place to live Problems where you live: no known problems In the past 12 months, utilities in danger of being shut off: no In the past 12 mos, have been you worried that your food would run out before you had money to buy more?: never true In the past 12 mos, the food you bought just didn't last and you didn't have money to buy more?: never true Smoking Status: Former smoker How often does anyone, including family, friends and others, physically hurt you : never How often does anyone, including family, friends and others, insult or talk down to you: never How often does anyone, including family, friends and others, threaten you with harm: never How often does anyone, including family, friends and others, scream or curse at you: never Meds Home Medications and Allergies Home Medications ?Medication ?Instructions ?Recorded ?Confirmed ?Type PNV 153-FA 400 mcg-om3 35 mg-dha tab PO DAILY 11/28/23 06/14/24 History 25 mg-epa 5 mg-fish oil chew tablet ( Gummies) lisdexamfetamine 30 mg capsule 40 mg PO QDAY 11/28/23 06/17/24 History ascorbic acid (vitamin C) 500 mg 500 mg PO .QS 12/19/23 06/17/24 History capsule docusate sodium 50 mg capsule 50 mg PO QDAY 12/19/23 06/17/24 History (Stool Softener) aspirin 81 mg chewable tablet 81 mg PO QDAY 01/12/24 06/17/24 History magnesium 250 mg tablet 250 mg PO QDAY 01/16/24 06/17/24 History acetaminophen 500 mg tablet 500 mg PO Q6H PRN 06/11/24 06/17/24 History (Tylenol Extra Strength) Allergies Allergy/AdvReac Type Severity Reaction Status Date / Time nitrofurantoin (From Allergy Intermediate Anaphylaxis Verified 06/14/24 14:42 Macrobid) OB - H&P: Exam Physical Exam: Vital signs: Temp Pulse Resp BP Pulse Ox 98.1 F 86 20 139/88 98 06/18/24 07:35 06/18/24 10:45 06/17/24 19:49 06/18/24 10:45 06/18/24 10:05 Narrative: General: Appears very tired and pained Abdomen: Soft, gravid, cephalic, EFW 8 lbs Vaginal exam: complete, +2, some caput. By bedside US, OA position confirmed; on vaginal exam, URSULA tracing: Baseline 130, accelerations present, no decelerations, moderate variability OB - Results Labs Labs: Short CBC 06/17/24 Range/Units 15:24 WBC 11.52 H (4.50-11.00) K/uL Hgb 12.1 (12.0-16.0) gm/dL Hct 36.2 (33.0-51.0) % Plt Count 273 (140-440) K/uL BMP 06/17/24 15:21 BUN 9 Creatinine 0.5 Liver Function 06/17/24 Range/Units 15:21 AST 27 (12-35) U/L ALT 14 (4-35) U/L OB - CN: A/P Assessment and Plan (1) Preeclampsia: Status: Acute (2) LGA (large for gestational age) fetus: Status: Acute (3) : Status: Acute (4) Obesity (BMI 30-39.9): Status: Acute (5) ADHD: Problem details: Quit Adderall with +UPT, on Vyvanse Status: Acute (6) Tobacco abuse: Problem details: quit cigarettes but still vaping Status: Acute (7) Thin meconium stained amniotic fluid: Status: Acute (8) Arrested active phase of labor: Status: Acute Plan Arrest of descent, now nearly 3 hours in to 2nd stage. Inadequate pain control with epidural Reassuring status with category 1 tracing I offered Jennifer the options forceps assisted vaginal delivery or for indication arrest of descent. I briefly discussed the risks and benefits of forceps. She declined this intervention in favor of cesareans. We discussed risks of , including bleeding/hemorrhage, infection, damage to internal organs, uterine scarring, impact on future pregnancies, thromboembolism. Consent form was signed by patient. Cefazolin and azithromycin for preoperative prophylaxis. Lovenox for prophylaxis of thromboembolism at intermediate dosing schedule.
[2024-06-18] MEDS: AZITHROMYCIN 500 MG in 0.9 % SODIUM CHLORIDE 250 ml 250 ML 255 MG IVPB (11:40)
[2024-06-18] MEDS: CEFAZOLIN 1 GM inj 3 GM IVP (11:55)
[2024-06-18] MEDS: LOPERAMIDE HCL 2 MG CAPSULE 4 MG PO (12:25)
--- NOTE | 2024-06-18 12:34 | W.ANESCHARGE ---
Anesthesia Charges Start Date/Time Anesthesia Start Date: 06/18/24 Anesthesia Start Time: 11:44 Stop Date/Time Anesthesia Stop Date: 06/18/24 Anesthesia Stop Time: 13:25 Summary Emergency: MDA
--- NOTE | 2024-06-18 12:35 | W.PM.NB ---
Nerve Block Nerve Block Time Seen by Provider: 13:18 Date Seen: 06/18/24 Type of block requested by surgeon for post-operative analgesia: TAP Side: bilateral Time out performed: Yes Verification of patient name: Yes Verification of date of : Yes Site marking: site marked Name of person performing procedure: Rodger Continuous monitoring Was continuous monitoring of O2 sat, B/P, groundwater monitoring technician, recorded every 15 minutes?: Yes Procedure Checklist: sterile prep, needles and gloves Ultrasound guided. Images saved: Yes Medications given in 5ml increments after negative aspiration: Marcaine %: 0.25 mL: 30 Needle gauge: 20 and Exparel mL: 10 Patient tolerated procedure well: Yes Additional comments: Needle noted between internal oblique and transversus abdominus. Local spread visualized Block Charges Block Charge (with Pro Fee): TAP Bilateral Use of Ultrasound Machine for Block: Yes- US Guidance/pain block
[2024-06-18] MEDS: KETOROLAC 30 MG/ML inj IVP ×2 (13:04→19:31)
--- NOTE | 2024-06-18 13:32 | P.ANES_ITS ---
Anesthesia Charges Start Date/Time Anesthesia Start Date: 06/18/24 Anesthesia Start Time: 11:44 Stop Date/Time Anesthesia Stop Date: 06/18/24 Anesthesia Stop Time: 13:25 Summary Emergency: LEGAL SUPPORT MANAGER
--- NOTE | 2024-06-18 13:44 | P.OBPRC_ITS ---
Procedure Date of procedure: 06/18/24 Pre-op diagnosis: 37 weeks, 2 days gestation Arrest of descent Post-op diagnosis: same (Deeply impacted head) Procedure Done: Global Will [facility] bill your pro fee for this procedure?: Yes Blood Loss Measurement Type: QBL Bakri Used: No IV fluids (mL): 500 Urine Output (mL): 600 Urine Output Comment: blood-tinged Surgeon: Joan Crowe MD Anesthesia Type: Epidural Findings: 1. Deeply impacted head, requiring classical vertical extension of the hysterotomy and, ultimately, breech delivery 2. Female , OA presentation, Apgars of 8 and 8, weight 3275 g 3. Normal appearance of bilateral tubes and ovaries Procedure Name: Primary low-transverse with vertical extension into the active segment Procedure Description: PROCEDURE IN DETAIL: Patient was taken to the operating room with IV running. She received cefazolin and azithromycin in preoperative prophylaxis. Epidural anesthesia had previously been administered. Hernandez catheter was inserted. I manually elevated the head with my palm as much as possible on vaginal exam just prior to scrubbing. She was prepped and draped in the usual sterile fashion. Anesthesia was tested and found to be adequate. A low-transverse skin incision was made with a scalpel and carried through to th e underlying layer of fascia with the scalpel. The subcutaneous fat was dissected off the underlying fascia bluntly. The fascia was nicked in the midline with a scalpel, and this incision was extended laterally with scissors. The rectus muscles were in the midline. Peritoneum was identified and entered bluntly. Bovie was used to widen this opening laterally. Jose Luis O retractor was inserted and tightened down, providing excellent visualization of the lower uterine segment. The bladder reflection was found to be well below the planned site for hysterotomy. Low-transverse uterine incision was made with a scalpel. Incision was widened bluntly. The 's head was grasped through the hysterotomy. Several attempts were made to elevate the head to the level of the hysterotomy, all unsuccessful. I then guided the scrub nurse to elevate the infant's shoulders out of the pelvis bilaterally and attempted again to delivery the head through the hysterotomy, which was again unsuccessful. Finally, I extended the uterine incision vertically with bandage scissors. The Jose Luis O retractor was removed. The infant's breech was brought through the hysterotomy, followed by the 's body. The head was then delivered, taking care not to overextend the neck. Cord was clamped and cut after 30 seconds. was handed off to attending pediatric provider. The placenta was delivered manually when gentle traction was not successful. The uterus was exteriorized and cleaned of all clots and debris with the dry lap pad. The hysterotomy and vertical extension were reapproximated with 0 Vicryl in a running, locked fashion. Second layer of the same suture was used in imbricating fashion to obtain hemostasis. Uterine atony was noted at this time, and was managed with Pitocin, tranexamic acid and Hemabate. The vertical extension was noted to be bleeding, which was addressed with additional sutures. The medial aspect of the left broad ligament had been sewn to the left edge of the hysterotomy, and this was released. Bleeding along the edge of the left round ligament was addressed with a whipstitch of 2-0 Chromic. Hemostasis was noted. The adnexa were examined and noted to be normal in appearance. The cul-de-sac was cleansed with laparotomy sponge. Uterus was returned to the abdomen. The pelvic gutters were cleansed with laparotomy sponge, removing any further clots and debris. The hysterotomy was reexamined and found to be hemostatic. Erista hemostatic agent was applied over the left aspect of the hysterotomy and over the vertical extension. The peritoneum was reapproximated with 2 0 Vicryl in a running fashion. The rectus muscles were examined and found to be hemostatic. The fascia was reapproximated with 0 Vicryl in a running fashion. Subcutaneous fat was irrigated and Bovie used on oozing vessels. The subcutaneous fat was reapproximated with 2 0 plain gut suture in an interrupted fashion. The skin was closed with a subcuticular stitch of 4-0 Monocryl. Five Steri strips, then a Silver dressing was applied above this. Patient tolerated procedure well was taken to recovery area in stable condition. Pathology: specimen obtained, sent to pathology Surgery Debrief Performed: Yes Surgery Debrief Comment: Postoperative debrief was verbalized with OR staff, including a verification of pathology specimens to be sent as described above. Infant total score - 1 minute: 7 total score - 5 minute: 8
[2024-06-18] MEDS: NICOTINE 7 MG PATCH 1 PATCH TRANSDERMA (15:25)
[2024-06-19 00:49] VITALS: BP 121/76; PULSE 118; RESP 18; TEMP 37
[2024-06-19] MEDS: KETOROLAC 30 MG/ML inj IVP ×4 (00:59→20:14)
[2024-06-19 03:41] VITALS: BP 119/85; PULSE 97; TEMP 37
[2024-06-19] MEDS: OXYCODONE 5 MG TABLET PO ×4 (03:50→18:34)
[2024-06-19] MEDS: ACETAMINOPHEN 500 MG TABLET 1000 MG PO ×3 (05:31→18:34)
[2024-06-19 07:13] LABS: Basophils Percent Auto 0.1 % (0.0-3.0); Eosinophils Percent Auto 0.7 % (0.0-7.0); Hematocrit 26.1 % (33.0-51.0); Hemoglobin* 8.6 gm/dL (12.0-16.0); Immature Granulocytes Pct Auto 0.9 %; Lymphocytes Percent Auto 17.1 % (20-44); Mean Corpuscular HGB Conc 33 gm/dL (32-36); Mean Corpuscular Hemoglobin 29 pg (26-34); Mean Corpuscular Volume 88 fL (80-100); Monocytes Percent Auto 9.6 % (0.0-11.0); Neutrophils Percent Auto 71.6 % (42.0-72.0); Platelet Count* 234 K/uL (140-440); RDW Coefficient of Variation % 13.2 % (11.5-15.5); Red Blood Count 2.96 m/uL (4.00-5.20); White Blood Count* 16.46 K/uL (4.50-11.00)
[2024-06-19 07:20] LABS: Slide Review Reflex No
[2024-06-19 07:30] LABS: Alanine Aminotransferase* 10 U/L (4-35); Aspartate Amino Transferase* 27 U/L (12-35); Blood Urea Nitrogen* 10 mg/dL (5-24); Creatinine* 0.5 mg/dL (0.5-1.5); Est. Creatinine Clearance* 155.42; Estimated Glomerular Filt Rate 130 ml/min
[2024-06-19] MEDS: DOCUSATE SODIUM 100 MG CAPSULE PO (08:10)
[2024-06-19 08:15] VITALS: BP 120/83; PULSE 97; RESP 18; TEMP 36.7; O2SAT 97
[2024-06-19] MEDS: FERROUS SULFATE 325 MG TABLET PO (10:58)
--- NOTE | 2024-06-19 13:25 | P.OBPN_ITS ---
OB - PN:Subj Subjective Date Seen: 06/19/24 Patient comments OB post-: pain well controlled, tolerating diet and flatus present infant status: Narrative: Ashia is a 28 y.o. who was admitted to [facility] for IOL due to preeclampsia w/o severe features. ?She had a complicated , deeply impacted head, requiring hysterotomy vertical extension and breech delivery.?The patient feels well. ?The pain is well controlled with current medications. ?She has no new complaints. ?She is breast feeding and reports things are going well.? the patient has done well.? Vitals have been stable.? She has remained afebrile.? Has a good appetite, is tolerating a general diet. ?She is voiding without difficulty.? She is passing gas and has not had a bowel movement.? She is ambulating and denies any dizziness.? Has Small amount of rubra lochia. Does note increased swelling of lower extremities. 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 OB - PN: Obj Exam Physical Exam: Vital signs: Temp Pulse Resp BP Pulse Ox O2 Del Method 98.0 F 97 18 120/83 97 Room Air 06/19/24 08:15 06/19/24 08:15 06/19/24 08:15 06/19/24 08:15 06/19/24 08:15 06/19/24 08:15 Narrative: GENERAL APPEARANCE:? normal affect, alert, no distress MOOD:? appropriate CHEST:? clear to auscultation HEART:? regular rate and rhythm ABDOMEN:? soft, mildly distended, appropriately tender and the uterine fundus is At Umbilicus, Midline and is appropriate for the stage of recovery. EXTREMITIES:? Bilateral pitting edema +1. No pain, no abnormal skin changes. Incision: Covered by silver dressing, dry and clean. OB - PN: Obj Data Labs Labs: Laboratory Results - last 24 hr 06/19/24 06:44 WBC 16.46 H RBC 2.96 L Hgb 8.6 L Hct 26.1 L MCV 88 MCH 29 MCHC 33 RDW Coeff of Francisco 13.2 Plt Count 234 Neut % (Auto) 71.6 Lymph % (Auto) 17.1 L Arroyo % (Auto) 9.6 Eos % (Auto) 0.7 Baso % (Auto) 0.1 Neut # (Auto) 11.80 H Lymph # (Auto) 2.80 Arroyo # (Auto) 1.60 H Eos # (Auto) 0.10 Baso # (Auto) 0.00 Abs Immat Gran (auto) 0.10 Imm/Tot Granulo (auto) 0.9 BUN 10 Creatinine 0.5 Estimated Creat Clear 155.42 Estimated GFR 130 AST 27 ALT 10 OB - PN: A/P Delivery Assessment and Plan (1) Preeclampsia: Status: Acute Assessment and Plan: Continue with BP monitoring, HELLP labs repeated this morning and normal, will only repeat if there are concerns for severely elevated blood pressures or CIGARETTE CARTON SEALER irritability symptoms. Anemia, started on oral iron supplements every other day. (2) LGA (large for gestational age) fetus: Status: Acute (3) : Status: Acute (4) Obesity (BMI 30-39.9): Status: Acute (5) ADHD: Problem details: Quit Adderall with +UPT, on Vyvanse Status: Acute (6) Tobacco abuse: Problem details: quit cigarettes but still vaping Status: Acute (7) Thin meconium stained amniotic fluid: Status: Acute (8) Arrested active phase of labor: Status: Acute Plan day: 1 Plan: routine care
[2024-06-19 13:30] VITALS: BP 110/76; PULSE 100; RESP 18; TEMP 36.5; O2SAT 97
[2024-06-19] MEDS: NICOTINE 7 MG PATCH 1 PATCH TRANSDERMA ×2 (15:54→19:40)
[2024-06-19 16:20] VITALS: BP 120/86; PULSE 97; RESP 18; TEMP 36.5; O2SAT 100
[2024-06-19] MEDS: ENOXAPARIN 40 MG/0.4 ML INJ SUBCUT (18:39)
[2024-06-19 20:17] VITALS: BP 132/79; PULSE 106; RESP 16; TEMP 37.1
[2024-06-19] MEDS: CALCIUM CARBONATE 500 MG CHEW PO (20:24)
[2024-06-20] MEDS: OXYCODONE 5 MG TABLET PO ×3 (00:33→10:56)
[2024-06-20] MEDS: ACETAMINOPHEN 500 MG TABLET 1000 MG PO ×3 (00:34→14:27)
[2024-06-20] MEDS: CALCIUM CARBONATE 500 MG CHEW PO (00:38)
[2024-06-20 00:45] VITALS: BP 108/69; PULSE 130; RESP 18; TEMP 37
[2024-06-20 02:27] LABS: Rapid Plasma Reagin (RPR) Non Reactive (Non Reactive)
[2024-06-20] MEDS: IBUPROFEN 600 MG TABLET PO ×2 (04:42→10:55)
[2024-06-20 04:45] VITALS: BP 121/82; PULSE 105; TEMP 37.1
[2024-06-20] MEDS: ENOXAPARIN 40 MG/0.4 ML INJ SUBCUT (07:46)
[2024-06-20] MEDS: DOCUSATE SODIUM 100 MG CAPSULE PO (08:01)
[2024-06-20 09:30] VITALS: BP 114/78; PULSE 100; RESP 16; TEMP 36.7; O2SAT 96
--- NOTE | 2024-06-20 11:57 | P.DS_ITS ---
DS: Providers Provider Date Seen: 06/20/24 Date of admission: 06/17/24 14:09 Primary care physician: Not a Local Provider Admitting Clinician: Dinah Fischer CNM Consults: 06/18/24 10:52 Consult to Physician [CONS] Routine Comment: Consulting Provider: Joan Crowe Has provider been notified: Yes Attending Physician on discharge: Tea Bloom MD Date of Discharge: 06/20/24 DS: Diagnosis Discharge Diagnosis (1) Preeclampsia: Status: Acute (2) ADHD: Status: Acute Problem details: Quit Adderall with +UPT, on Vyvanse (3) Vapes nicotine containing substance: Status: Acute (4) S/P section: Status: Acute Exam Narrative: Exam Narrative: VITAL SIGNS: As noted above. GENERAL APPEARANCE: Alert, cooperative female in no acute distress. MOOD & AFFECT: Normal. HEART: Regular rate and rhythm without murmurs. LUNGS: Lungs are clear to auscultation bilaterally. No crackles, wheezes, or rhonchi. ABDOMEN: Well contracted uterus, appropriately tender, silver dressing in place, clean and dry. : Normal pp lochia. EXTREMITIES: Bilateral pitting edema +1. Well perfused. Nontender. NEURO: Intact. Const: Vital Signs, click to edit/add: Vital Signs - 24 hr 06/19/24 13:30 06/19/24 16:20 06/19/24 20:17 Temperature 97.7 F 97.7 F 98.8 F Pulse Rate [Pulse Oximeter] 100 97 106 H Respiratory Rate 18 18 16 Blood Pressure [Le ft Arm] 110/76 120/86 132/79 Pulse Oximetry 97 100 Oxygen Delivery Me thod Room Air Room Air 06/20/24 00:45 06/20/24 04:45 06/20/24 09:30 Temperature 98.6 F 98.7 F 98.1 F Pulse Rate [Pulse Oximeter] 130 H 105 H 100 Respiratory Rate 18 16 Blood Pressure [Le ft Arm] 108/69 121/82 114/78 Pulse Oximetry 96 Oxygen Delivery Me thod Room Air OB - DS: Summary Hospital Course Hospital Course: The patient is a 28 year old G 1 P 1001 at 37 1/7 weeks gestation that was admitted to the Center on 06/17/24 for IOL due to preeclampsia w/o severe features diagnosis . She had an complicated delivery delivery-deeply impacted head-with need for vertical hysterotomy extension and breech delivery. She delivered a viable female infant. She is breast feeding. the patient has done well. 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 Peripartum Data delivery method: Primary C/S; Labored Procedures: Procedures Operation Date: 06/18/24 11:45 Actual Procedure Side Surgeon p Primary Low Transverse Section with Classical Vertical Extension Joan Crowe MD complications: none Infant Gender: Female Discharge Plan: Home Status at Discharge Functional status at discharge: independent ambulation Overall status at discharge: patient is progressing back to baseline Time Spent with Patient Time attestation: Total time spent providing and/or coordinating discharge services: Time spent: Less than 30 minutes Discharge Plan Discharge Disposition: Home, Self-Care Date of Admission: 06/17/24 14:09 Consulting Providers: Lowell Amin Shannon T Primary Care Provider: Provider,Not a Local Condition: Stable Anticipated Discharge Date/Time: 06/20/24 12:02 Discharge Medications: New acetaminophen 500 mg Tablet 1,000 mg PO Q6H PRN (Reason: Pain) Qty: 30 0RF ferrous sulfate 325 mg (65 mg iron) Tablet 325 mg PO Q48H Qty: 30 0RF docusate sodium 100 mg Capsule 100 mg PO DAILY Qty: 30 0RF ibuprofen 600 mg Tablet 600 mg PO Q6H PRN (Reason: Pain) Qty: 30 0RF oxycodone 5 mg Tablet 5 - 10 mg PO Q4H PRN (Reason: Pain) Qty: 15 0RF Continued Gummies 400 mcg-35 mg- 25 mg-5 mg tablet,chewable 1 tab PO DAILY lisdexamfetamine 30 mg capsule 40 mg PO QDAY magnesium 250 mg tablet 250 mg PO QDAY ascorbic acid (vitamin C) 500 mg capsule 500 mg PO .QS Discontinued aspirin 81 mg tablet,chewable 81 mg PO QDAY metoclopramide HCl [Reglan] 10 mg tablet 10 mg PO Q6H PRN (Reason: headache) Qty: 30 2RF Patient Comments: Just sent in today Stool Softener 50 mg capsule 50 mg PO QDAY acetaminophen [Tylenol Extra Strength] 500 mg tablet 500 mg PO Q6H PRN Discharge Orders: Discharge Order (Routine); Ordered 06/20/24 Ordered By: Emily Bloom Patient Education: OB /Breast Feeding Additional Instructions: Measure blood pressures at home twice a day. Notify clinic if there are blood pressures persistently more than 140 systolics, 90s diastolics or if any symptoms such as headaches that do not go away with pain medication, visual changes such as dark spots in vision, pain in the upper abdomen-that moves towards the upper right side. Follow-up in clinic in 3-5 days after discharge for blood pressure check and removal of silver dressing. Follow-up in clinic in 2 weeks for incision check and follow-up. Follow-up in 6 weeks in clinic for regular visit. Activity Level: No Weight Bearing Activity Detail: No lifting more than 15-20 pounds, nothing vaginally for 6 weeks Discharge Diet: Regular Follow Up Appointments: Provider,Not a Local [Primary Care Provider] - Forms: [employer] Info Instructions
== END 2024-06-20 15:35 | disposition home or self-care (01) | DRG 787 ==
PROVIDERS: Obstetrics & Gynecology; Admitting Provider Midwife; Visit Provider Midwife
PROC: (CPT 59514; principal; 2024-06-18 11:30)
DX: O14.04 Mild to moderate pre-eclampsia, complicating childbirth (principal); D62 Acute posthemorrhagic anemia; O99.214 Obesity complicating childbirth; O77.0 Labor and delivery complicated by meconium in amniotic fluid; O64.0XX0 Obstructed labor due to incomplete rotation of fetal head, not applicable or unspecified; Z3A.37 37 weeks gestation of pregnancy; Z37.0 Single live birth; Z72.0 Tobacco use; O99.344 Other mental disorders complicating childbirth; F90.9 Attention-deficit hyperactivity disorder, unspecified type; O36.63X0 Maternal care for excessive fetal growth, third trimester, not applicable or unspecified; R00.0 Tachycardia, unspecified; O42.02 Full-term premature rupture of membranes, onset of labor within 24 hours of rupture; G89.18 Other acute postprocedural pain; O64.1XX0 Obstructed labor due to breech presentation, not applicable or unspecified; O62.2 Other uterine inertia; O90.81 Anemia of the puerperium
CPT/HCPCS: 01967; 01968; 36415; 64488; 76942; 82565; 84450; 84460; 84520; 85025; 85027; 86592; 86850; 86900; 86901; 88307; 99140; A4314; A9270; C9290; J0456; J0665; J0690; J1650; J1885; J2270; J2371; J2590; J2795; J3010; J7050; J7120; S4990

== ENCOUNTER 2024-06-25 10:56 | Outpatient (CLI) | payer MEDICAID, SELFPAY | END 2024-06-25 10:57 | disposition home or self-care (01) | PROVIDERS: Visit Provider Obstetrics & Gynecology | DX: O16.3 Unspecified maternal hypertension, third trimester (principal) | CPT/HCPCS: 82565; 82570; 84156; 84450; 84460; 84520 ==

== ENCOUNTER 2024-10-08 10:19 | Emergency (ER) | payer MEDICAID, SELFPAY ==
[2024-10-08 10:38] VITALS: BP 122/87; PULSE 114; RESP 18; O2SAT 99
--- NOTE | 2024-10-08 12:01 | CRLHL7_ITS ---
For Patients: As a result of the Century Cures Act, medical imaging exams and procedure reports are released immediately into your electronic medical record. You may view this report before your referring provider. If you have questions, please contact your health care provider. Indication: 4 MONTHS POST , IUD, BLEEDING Technique: Real-time sonographic images of the pelvis were obtained transvaginally utilizing grayscale, color, and Doppler imaging. Comparison: 11/28/2023. Findings: Uterus: Appearance: Intrauterine device is seen in the lower uterine segment with the right arm superiorly within the endometrium and the left arm angled anteriorly near the section scar. Position: Anteverted. Size: 7.5 x 3.5 x 4.3 cm. Endometrial stripe: 11 mm. Right ovary: Size: 3.5 x 1.5 x 2.3 cm. Appearance: Normal morphology. No masses. Preserved blood flow. Left ovary: Size: 4.0 x 1.3 x 2.9 cm. Appearance: Normal morphology. No masses. Preserved blood flow. Free fluid: None. Impression: 1. Intrauterine device is seen in the lower uterine segment with the right arm superiorly within the endometrium and the left arm angled anteriorly near the section scar. Consider repositioning. 2. Normal sonographic appearance of the bilateral ovaries. Dictated by Michael Ortiz MD @ 10/08/2024 1:16:45 PM (Electronically Signed)
--- OUTSIDE RECORDS SUMMARY | 2024-10-08 12:23 | XMS_ITS | Clinical Summary ---
Author Organization [facility] Address [address] [place] [address] Care Team Providers Care Dredgemaster Name Role Phone Judit Huizar APRN, C.N.P., D.N.P. P [facility] Care Provider Source Comments Patient records contain information from all sites at [facility]. For routine questions regarding patient records, call [phone] during business hours, M-F 8:00 AM - 5:00 PM Central Time. Record requests for emergency care only can be directed to [phone] at any time.[facility] Allergies Active Allergy Reactions Criticality Noted Date Comments Nitrofurantoin Monohyd/M-Cryst Edema (Reselect Reaction) 02/08/2014 Medications [id number] 27 mg iron- 1 mg tablet Take 1 tablet by mouth daily. Active lisdexamfetamine (Vyvanse) 30 mg capsule Take 1 capsule (30 mg total) by mouth every morning. 30 capsule 4 Active acetaminophen (TylenoL) 500 mg tablet Take 2 tablets by mouth every 6 (six) hours as needed for pain. 4 Active clotrimazole (Lotrimin) 1 % cream APPLY TO AFFECTED AREA(S) TOPICALLY TWICE A DAY 5 Active ferrous sulfate 325 mg (65 mg iron) tablet TAKE 1 TABLET BY MOUTH EVERY 48 HOURS 4 Active ibuprofen 600 mg tablet Take 1 tablet by mouth every 6 (six) hours as needed for pain. 4 Active cholecalciferol (Vitamin D3) 25 mcg (1,000 Unit) capsule Take 25 mcg by mouth daily. Active NIFEdipine XL (Procardia XL) 30 mg 24 hr tabletIndications: Hypertension Gestational (HCC) Take 1 tablet (30 mg total) by mouth daily. 30 tablet 2 5 Active amphetamine-dextro amphetamine (Adderall XR) 30 mg 24 hr capsuleIndications :Attention Deficit With Hyperactivity Disorder Take 1 capsule (30 mg total) by mouth daily. 30 capsule 5 Active amphetamine-dextro amphetamine (Adderall XR) 30 mg 24 hr capsuleIndications :Attention Deficit With Hyperactivity Disorder Take 1 capsule (30 mg total) by mouth daily. 30 capsule 5 Active amphetamine-dextro amphetamine (Adderall XR) 30 mg 24 hr capsuleIndications :Attention Deficit With Hyperactivity Disorder Take 1 capsule (30 mg total) by mouth daily. 30 capsule 5 11/08/19 25 Active dextroamphetamine- amphetamine (AdderalL) 5 mg tabletIndications: Attention Deficit With Hyperactivity Disorder Take 1 tablet (5 mg total) by mouth 2 (two) times a day. 60 tablet 5 Active dextroamphetamine- amphetamine (AdderalL) 5 mg tabletIndications: Attention Deficit With Hyperactivity Disorder Take 1 tablet (5 mg total) by mouth 2 (two) times a day. 60 tablet 5 Active dextroamphetamine- amphetamine (AdderalL) 5 mg tabletIndications: Attention Deficit With Hyperactivity Disorder Take 1 tablet (5 mg total) by mouth 2 (two) times a day. 60 tablet 5 Active Active Problems Problem Noted Date Diagnosed Date Tachycardia Sinus 02/16/2019 Management Contraceptive 02/16/2019 Abuse Tobacco Smoking 11/03/2014 Attention Deficit With Hyperactivity Disorder Overview (12/03/2016): ADHD Assessment & Plan (08/22/2024 10:32 AM SOCIAL SCIENCE PROFESSOR): Reports difficulty focusing and managing tasks at home. Previously controlled on Adderall 30mg with additional 10mg as needed, but currently on Vyvanse 30mg with inadequate symptom control. -Discontinue Vyvanse. -Start Adderall 30mg daily with additional 5mg twice daily as needed. -Adjust dose based on symptom control and blood pressure readings. Orders: amphetamine-dextroamphetamine (Adderall XR) 30 mg 24 hr capsule; Take 1 capsule (30 mg total) by mouth daily. amphetamine-dextroamphetamine (Adderall XR) 30 mg 24 hr capsule; Take 1 capsule (30 mg total) by mouth daily. amphetamine-dextroamphetamine (Adderall XR) 30 mg 24 hr capsule; Take 1 capsule (30 mg total) by mouth daily. dextroamphetamine-amphetamine (AdderalL) 5 mg tablet; Take 1 tablet (5 mg total) by mouth 2 (two) times a day. dextroamphetamine-amphetamine (AdderalL) 5 mg tablet; Take 1 tablet (5 mg total) by mouth 2 (two) times a day. dextroamphetamine-amphetamine (AdderalL) 5 mg tablet; Take 1 tablet (5 mg total) by mouth 2 (two) times a day. Assessment & Plan (04/23/2020 6:03 PM CDT): Discussed dosing options. Discussed that I would like to continue to move towards single once a day dosing, and if a short-acting doses needed, have a just be once daily in the afternoon.. Will change Vyvanse to 60 mg daily and decreased Adderall to 10 mg twice a day. With her heart rate decreased today, will continue to monitor in defer cardiology evaluation. If at any point tachycardia is demonstrated or noted on her part, will proceed with cardiology evaluation at that time. Urinary Tract Infection (UTI)/Bacteriuria NOS Overview (08/12/2022): Diagnosis Maintenance Updates Encounters Date Type Department Care Team Description 08/10/2024 9:00 AM SOCIAL SCIENCE PROFESSOR Office Visit Department of Family Medicine, [facility], in [place], [place] [address] [phone] Reuben Osborn M.D. Hypertension Gestational (HCC) (Primary Dx); Attention Deficit With Hyperactivity Disorder from Last 3 Months Immunizations Immunization Administration Dates Next Due 4vHPV (discontinued) 08/12/2007,04/24/2007,02/24 DTP / Hib 04/12/1996,07/21/1995,04/28/1995 ,02/25/1995 DTaP (Infanrix, [employer]) 02/24/2007,01/07/2000 DTaP / Hib 04/12/1996,07/21/1995,04/28/1995 ,02/25/1995 HepB Adult 11/04/1995,04/28/1995,02/25/1995 HepB Pediatric/Adolescent 11/04/1995,04/28/1995, 02/25/1995 IPV 01/07/2000 Influenza, Unspecified 04/26/2013 MCV4 (Menactra)(Discontinued) 02/24/2007 MCV4, Unspecified 02/24/2007 MMR 01/07/2000,04/12/1996 OPV 07/21/1995,04/28/1995,02/25/1995 Tdap 01/29/2021,02/24/2007 Family History Medical History Relation Name Comments Alcohol abuse Brother Sleep apnea Father Easton Alvarez Stroke Maternal Grandfather Breast cancer Maternal Grandmother Adore Valenzuela COPD Maternal Grandmother Adore Valenzuela Miscarriages / Stillbirths Maternal Grandmother Adore Valenzuela retained placenta Mother Breast cancer Mother's Sister Breast cancer Other Maternal Great Grandmoth Sleep apnea Paternal Grandfather Katie Alvarez Relation Name Status Comments Brother Father Easton Alvarez Alive Maternal Grandfather Maternal Grandmother Adore Valenzuela Mother Alive Mother's Sister Other Maternal Great Grandmoth Paternal Grandfather Katie Alvarez Paternal Grandmother Social History Tobacco Use Types Packs/Day Years Used Date Smoking Tobacco: Every Day Cigarettes 0.5 14.2 Started: 07/14/2010 Smokeless Tobacco: Never Tobacco Cessation:Ready to Q uit: Not Asked; Counseling Given: Not Answered Comments:Has cut back from almost ppd to 1/2 ppd currently Alcohol Use Standard Drinks/Week Comments Not Currently 5 (1 standard drink = 0.6 oz pur e alcohol) Don t drink every week Humiliation, Afraid, Rape, and Kick questionnair e Answer Date Recorded Within the last year, have y ou been afraid of your partner or ex-partner? Patient declined 04/18/2022 Within the last year, have y ou been humiliated or emotionally abused in other ways by your partner or ex-partner? Patient declined 04/18/2022 Within the last year, have y ou been kicked, hit, slapped, or otherwise physically hurt by your partner or ex-partner? Patient declined 04/18/2022 Within the last year, have y ou been raped or forced to have any kind of sexual activity by your partner or ex-partner? No 04/18/2022 Social Connection and Isolat ion Panel [NHANES] Answer Date Recorded In a typical week, how many times do you talk on the phone with family, friends, or neighbors? More than three times a week 04/18/2022 How often do you get togethe r with friends or relatives? More than three times a week 04/18/2022 How often do you attend chur or amish services? 1 to 4 times per year 04/18/2022 Do you belong to any clubs o r organizations such as congregational groups, unions, fraternal or athletic groups, or school groups? No 04/18/2022 How often do you attend meet ings of the clubs or organizations you belong to? Never 04/18/2022 Are you , , di vorced, , never , or living with a partner? Never 04/18/2022 AUDIT-C Answer Date Recorded Q1: How often do you have a drink containing alc ohol? 2-3 times a week 04/18/2022 Q2: How many drinks containi ng alcohol do you have on a typical day when you are drinking? 1 or 2 04/18/2022 Q3: How often do you have si x or more drinks on one occasion? Monthly 04/18/2022 Overall Financial Resource Strain (CARDIA) Answe r Date Recorded How hard is it for you to pa y for the very basics like food, housing, medical care, and heating? Not hard at all 05/14/2023 PHQ-2 Answer Date Recorded PHQ-2 Score 0 08/10/2024 [facility] - Occupational Stress Questionnaire Answer Date Recorded Do you feel stress - tense, restless, nervous, or anxious, or unable to sleep at night because your mind is troubled all the time - these days? Not at all 04/18/2022 Exercise Vital Sign Answer Date Recorde d On average, how many days pe r week do you engage in moderate to strenuous exercise (like a brisk walk)? 4 days 05/14/2023 On average, how many minutes do you engage in exercise at this level? 30 min 05/14/2023 Hunger Vital Sign Answer Date Recorded Within the past 12 months, y ou worried that your food would run out before you got the money to buy more. Never true 05/14/20 23 Within the past 12 months, t he food you bought just didn't last and you didn't have money to get more. Never true 05/14/2023 PRAPARE - Transportation Answer Date Re corded In the past 12 months, has l ack of transportation kept you from medical appointments or from getting medications? No 07/2022 In the past 12 months, has l ack of transportation kept you from meetings, work, or from getting things needed for daily living? No 05/14/2023 Depression Answer Date Recor ded PHQ-9 Total Score (max 27) 5 09/01 Nutrition Answer Date Recorded On average, how many serving s of fruits and vegetables do you eat per day (serving size is equal to 1 cup or approximately the size of a tennis ball)? 5 or more 05/14/2023 Dental Answer Date Recorded Dental: Regular Dentist Yes 04/18/20 Employment Answer Date Recorded Employment status Employed and actively working without restrictions 05/14/2023 Housing Stability Answer Date Recorded What is your living situation today? I have a [facility] place to live 05/14/2023 Education Answer Date Recorded What is the highest level of school you have completed or the highest degree you have received? 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 Not on file Not on file Not on file Last Filed Vital Signs Vital Sign Reading Time Taken Comments Blood Pressure 135/94 08/10/2024 9:10 AM SOCIAL SCIENCE PROFESSOR Pulse 101 08/10/2024 9:10 AM SOCIAL SCIENCE PROFESSOR Temperature 36.7 C (98 F) 05/19/2024 10:23 AM SOCIAL SCIENCE PROFESSOR Respiratory Rate 16 09/10/2021 9:21 AM SOCIAL SCIENCE PROFESSOR Oxygen Saturation 95% 05/22/2022 2:02 PM SOCIAL SCIENCE PROFESSOR Inhaled Oxygen Concentration - - Weight 113 kg (249 lb 5.4 oz) 08/10/2024 9:10 AM SOCIAL SCIENCE PROFESSOR Height 168 cm (5' 6.14) 08/10/2024 9:10 AM SOCIAL SCIENCE PROFESSOR Body Mass Index 40.07 08/10/2024 9:10 AM SOCIAL SCIENCE PROFESSOR Plan of Treatment Health Maintenance Due Date Last Done Comments Hepatitis C Screening 1994 Pneumococcal vaccine (0-49 y ears) (1 of 2 - PCV) 2013 COVID-19 Vaccine (3 - 2023-2 5 season) 2024 11/17/2020, 10/27/2020 Influenza Vaccine (#1) 2024 04/26/2013 Tobacco Cessation counseling 05/14/2024 05/14/2023 Cervical/Vaginal Cancer Screening 10/31/2026 11/01/2023, 11/02/2020, 11/02/2020, Additional history exists DTaP,Tdap,and Td Vaccines (1 0 - Td or Tdap) 05/14/2034 05/14/2024, 01/29/2021, 02/24/2007, Additional history exists Hepatitis B Vaccines Completed 11/04/1995, 11/04/1995, 04/28/1995, Additional history exists IPV Vaccines Completed 01/07/2000, 02/1996, 04/28/1995, Additional history exists HPV Vaccines Completed 08/12/2007, 04/13, 02/24/2007 Chlamydia and Gonorrhea Screening Discontinued 012 HIV Screening Completed 03/03/2012 Depression Screening (Annual PHQ-2) Completed 08/10/2024, 08/10/2024 Procedures Procedure Name Priority Date/Time Associated Diagnosis Comments THINPREP SCREEN HPV REFLEX Routine 11/01/2023 11:08 AM CDT Pap Smear Examination HXZZORDERS Routine 03/03/2012 3:05 PM CDT C TRACH RNA Routine 03/03/2012 3:00 PM CDT from Last 3 Months or Most Recently Relevant to Health Maintenance Results * ThinPrep Screen HPV Reflex (11/01/2023 11:08 AM CDT) 11/07/2023 12:14 PM CDT [facility] Report electronically signed by NUBIA Truong(ASCP) I verify that I have examined all relevant slides/materials for the specimen(s) and rendered or confirmed the diagnosis. 11/07/2023 12:14 PM CDT [facility] Gross Description Received specimen in a ThinPrep vial. 11/07/2023 12:14 PM CDT [facility] Pap Test Source Cervical/Endocervi eleni 11/07/2023 12:14 PM CDT [facility] Clinical History wwe 11/07/19 12:14 PM CDT [facility] Menstrual Status(LMP, PM, ) unknown 11/07/2023 12:14 PM CDT [facility] Hormone Therapy/Contracep tives no 11/07/2023 12:14 PM CDT [facility] Interpretation Cervical/Endocervi eleni (ThinPrep): Satisfactory for Evaluation Negative for Intraepithelial Lesion or Malignancy Fungal organisms morphologically consistent with Herminia spp. 11/07/2023 12:14 PM CDT [facility] Thin Prep Vial (Cervix/Endocerv ix) 11/01/2023 11:08 AM CDT 11/03/2023 6:35 AM CDT us Emily Pan P.A.-C., P.A., M.S., M.P.H. LAB PAP PATHDX ORDERABLES Final Result [facility] [address] [place] [address], [facility] [address] [address] * HXZZORDERS (03/03/2012 3:05 PM CDT) HIV-1/-2 Antibody Negative Negative POWERCHART Comment: If this test is ordered as a follow-up test to a reactive rapid HIV antibody test result, supplemental testing by Western blot is recommended, even when this test result is negative. Test Performed by: [address] [address] Human Resources Professional: Jose G Hood III, M.D. Blood 03/03/2012 3:05 PM CDT Reuben Osborn M.D. LAB HISTORICAL ORDERS Final Result POWERCHART * HX-C Trach RNA (03/03/2012 3:00 PM CDT) Chlamydia trachomatis amplified RNA Negative POWERCHART 03/03/2012 3:00 PM CDT Reuben Osborn M.D. LAB HISTORICAL ORDERS Final Result POWERCHART from Last 3 Months or Most Recently Relevant to Health Maintenance Insurance [employer] Care Teams Dredgemaster Relationship Specialty Start Date End Date Du-Judit Finn APRN, C.N.P., D.N.P. [address] [place] [phone] [facility] - General 12/19/23
--- OUTSIDE RECORDS SUMMARY | 2024-10-08 12:23 | XMS_ITS | Encounter Summary ---
Author Organization [facility] Address [address] [place] [id number] Care Team Providers Care Access Nurse Name Role Phone Judit Huizar APRN, C.N.P., D.N.P. P [facility] Care Provider Encounter Details Date Type Department Care Team (Late st Contact Info) Description 03/04/2022 Orders Only RST CCM [address] [place] [phone] [facility], Provider, MD Screening Test Laboratory Social History Tobacco Use Types Packs/Day Years Used Date Smoking Tobacco: Every Day Cigarettes 0.5 14.2 Started: 07/14/2010 Smokeless Tobacco: Never Alcohol Use Standard Drinks/Week Comments Yes 5 (1 standard drink = 0.6 oz pur e alcohol) Don t drink every week Humiliation, Afraid, Rape, and Kick questionnair e Answer Date Recorded Within the last year, have y ou been afraid of your partner or ex-partner? No 11/02/2020 Within the last year, have y ou been humiliated or emotionally abused in other ways by your partner or ex-partner? No Within the last year, have y ou been kicked, hit, slapped, or otherwise physically hurt by your partner or ex-partner? No 11/02/2020 Within the last year, have y ou been raped or forced to have any kind of sexual activity by your partner or ex-partner? No 11/02/2020 Social Connection and Isolat ion Panel [NHANES] Answer Date Recorded In a typical week, how many times do you talk on the phone with family, friends, or neighbors? More than three times a week 11/02/2020 How often do you get togethe r with friends or relatives? More than three times a week 11/02/2020 How often do you attend chur ch or mormon services? 1 to 4 times per year 11/02/2020 Do you belong to any clubs o r organizations such as anabaptism groups, unions, fraternal or athletic groups, or school groups? No 11/02/2020 How often do you attend meet ings of the clubs or organizations you belong to? Patient declined 11/02/2020 Are you , , di vorced, , never , or living with a partner? Living with partner 11/02/2020 AUDIT-C Answer Date Recorded Q1: How often do you have a drink containing alc ohol? 2-3 times a week 11/02/2020 Q2: How many drinks containi ng alcohol do you have on a typical day when you are drinking? 1 or 2 11/02/2020 Q3: How often do you have si x or more drinks on one occasion? Monthly 11/02/2020 Overall Financial Resource Strain (CARDIA) Answe r Date Recorded How hard is it for you to pa y for the very basics like food, housing, medical care, and heating? Not very hard 11/02/2020 PHQ-2 Answer Date Recorded PHQ-2 Score 0 09/10/2021 [facility] - Occupational Stress Questionnaire Answer Date Recorded Do you feel stress - tense, restless, nervous, or anxious, or unable to sleep at night because your mind is troubled all the time - these days? To some extent 11/02/2020 Exercise Vital Sign Answer Date Recorde d On average, how many days pe r week do you engage in moderate to strenuous exercise (like a brisk walk)? 2 days 11/02/2020 On average, how many minutes do you engage in exercise at this level? 40 min 11/02/2020 Hunger Vital Sign Answer Date Recorded Within the past 12 months, y ou worried that your food would run out before you got the money to buy more. Never true 11/03/19 21 Within the past 12 months, t he food you bought just didn't last and you didn't have money to get more. Never true 11/02/2020 PRAPARE - Transportation Answer Date Re corded In the past 12 months, has l ack of transportation kept you from medical appointments or from getting medications? No 10/13 In the past 12 months, has l ack of transportation kept you from meetings, work, or from getting things needed for daily living? No 11/02/2020 Housing Stability Vital Sign Answer Brenden e Recorded In the last 12 months, was t here a time when you were not able to pay the mortgage or rent on time? No 11/02/2020 In the last 12 months, how many places have you lived? 1 11/02/2020 In the last 12 months, was t here a time when you did not have a steady place to sleep or slept in a intermediate (including now)? No 11/02/2020 Depression Answer Date Recor ded PHQ-9 Total Score (max 27) 0 10/24 Nutrition Answer Date Recorded Nutrition: EVOO Fat Source Unknown 11/09 Nutrition: Servings of Fruits/Vegetables per Day Not on file 11/09/2021 Dental Answer Date Recorded Dental: Regular Dentist Unknown 11/10/19 Employment Answer Date Recorded Employment status Employed and actively working without restrictions 11/02/2020 Education Answer Date Recorded What is the highest level of school you have completed or the highest degree you have received? 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 Not on file Not on file documented as of this encounter Plan of Treatment Not on file documented as of this encounter Visit Diagnoses Diagnosis Screening Test Laboratory documented in this encounter Additional Health Concerns Infection Onset Date Last Indicated Resolved Time COVID19 Pending 03/04/2022 03/04/2022 03/04/2022 9 :31 PM CDT COVID19 Pending 05/22/2022 05/22/202205/2205/22/2022 3 :01 PM NATIONAL ACCOUNT EXECUTIVE COVID19 Pending 05/22/2022 05/22/2022 05/22/2022 3 :50 PM NATIONAL ACCOUNT EXECUTIVE Assessment Noted Time PHQ-9 Depression Total Score: 0 10/25/19 20 4:18 PM CDT documented as of this encounter Care Teams Access Nurse Relationship Specialty Start Date End Date Du-Judit Finn APRN, C.N.P., D.N.P. [address] [phone] PCP - General 12/19/23 documented as of this encounter
--- OUTSIDE RECORDS SUMMARY | 2024-10-08 12:23 | XMS_ITS | Clinical Summary ---
Author Organization [facility] Address [address] [place] [id number] Care Team Providers Care Ict Programmer Name Role Phone Kandis Wright MD Primary Care Provi cyndy Allergies Active Allergy Reactions Criticality Noted Date Comments Nitrofurantoin *Unknown 06/13/2016 Medications dextroamphetamin e-amphetamine (ADDERALL XR) 30 mg Extended-Release capsule Take 30 mg by mouth once daily. 07/02/2023 Active lisdexamfetamine (Vyvanse) 20 mg capsule Take 20 mg by mouth once daily in the afternoon. Active lisdexamfetamine (Vyvanse) 30 mg capsule Take 30 mg by mouth once daily in the morning. Active Active Problems Problem Noted Date Diagnosed Date Tobacco dependence syndrome 11/03/201401/2023 Attention-deficit hyperactiv ity disorder, predominantly hyperactive type 12/10/2011 10/18/2022 Overview (10/18/2022): ADHD Last Assessment & Plan: Discussed dosing options. Discussed that I would [...] proceed with cardiology evaluation at that time. Estimated Date of Delivery Comme nts Yes 07/07/2024 Immunizations Immunization Administration Dates Next Due DTP-HIB 04/12/1996, 6,04/28/1995,02/25 DTaP 02/24/2007,01/07/2000 DTaP-HIB (TriHIBIT) 04/12/1996, 6,04/28/1995,02/25 Hepatitis B (Adult) 11/04/1995,04/28/1995,1994 Hepatitis B (Peds) 11/04/1995,04/28/1995, 995 Human Papilloma Virus Vaccine 08/12/2007, 007,02/24/2007 Inactivated Polio Vaccine 01/07/2000 Influenza Virus, Unspecified 04/26/2013 MMR 01/07/2000,04/12/1996 Meningococcal Mcv4, Unspecif ied Formulation 02/24/2007 Meningococcal Vaccine (Menactra) 02/24/2007 Oral Polio Vaccine 07/21/1995,04/28/1995, 995 Tdap 01/29/2021,02/24/2007 Social History Tobacco Use Types Packs/Day Years Used Date Smoking Tobacco: Former Cigarettes 0.5 11.2 2 013 - 10/2023 Smokeless Tobacco: Never Tobacco Cessation:Counseling Given: Not Answered Alcohol Use Standard Drinks/Week Comments Not Currently 0 (1 standard drink = 0.6 oz pur e alcohol) occ Social Connections Answer Date Recorded Frequency of Communication with Friends and Fami ly 0 01/10/2023 Financial Resource Strain Answer Date R ecorded Difficulty of Paying Living Expenses 3 01/10/2023 Difficulty of Paying Living Expenses Not on file 01/10/2023 Food Insecurity Answer Date Recorded Worried About Running Out of Food in the Last Ye ar 1 01/10/2023 Transportation Needs Answer Date Record ed Lack of Transportation (Medical) 1 01/10/2023 Housing Stability Answer Date Recorded Unable to Pay for Housing in the Last Year 1 01/10/2023 Estimated Date of Delivery Comme nts Yes 07/07/2024 Sex and Gender Information Value Date Recorded Sex Assigned at Not on file Legal Sex Female 6:22 AM 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 AND 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 Gender Identity Not on file Sexual Orientation Not on file Obstetrics History Para Term AB IAB SAB Ectopic Multiple Livin g Live Births 1 Date Outcome GA Total Labor Labor/2nd/3rd Weight Sex Type Anes PTL Lenora A1 A5 Name Clin Current Last Filed Vital Signs Vital Sign Reading Time Taken Comments Blood Pressure 120/77 07/18/2023 12:13 PM DEBURRING AND 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 Pulse 115 07/18/2023 12:13 PM DEBURRING AND 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 Temperature 36.3 C (97.4 F) 07/18/2023 12:13 PM DEBURRING AND 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 Respiratory Rate 16 07/18/2023 12:13 PM DEBURRING AND 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 Oxygen Saturation 97% 07/18/2023 12:13 PM DEBURRING AND 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 Inhaled Oxygen Concentration - - Weight 104 kg (229 lb 3.2 oz) 07/18/2023 12:13 P M DEBURRING AND 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 Height 165.1 cm (5' 5) 01/10/2023 11:13 AM CDT Body Mass Index 38.14 01/10/2023 11:13 AM CDT Plan of Treatment Health Maintenance Due Date Last Done Comments Depression screening for age 12+ 2006 HIV for age 15-65 2009 Hepatitis C screening for ag e 18-79 2012 Pap test for age 21-65 12/27/2015 BMI (ht and wt on same day) for age 18+ 01/11/2024 01/10/2023 COVID-19 vaccine series ( season) 2024 11/17/2020, 10/27/2020 Influenza Vaccine (#1) 2024 04/26/2013 Tetanus booster 01/29/2031 01/29/2021, 02/24/2007 Tdap Completed 01/29/2021, 02/24/2007 Pneumococcal series for age 6-49 Aged Out No longer eligible b ased on patient's age to complete this topic RSV vaccine for adults or (No Doses Required) Completed Insurance [facility] Care Teams Ict Programmer Relationship Specialty Start Date End Date Kandis Wright MD [address] [place] [phone] PCP - General Family Practice 06/25/24
--- OUTSIDE RECORDS SUMMARY | 2024-10-08 12:23 | XMS_ITS | Encounter Summary ---
Author Organization [facility] Address [address] [place] [address] Care Team Providers Care Live In Housekeeper Name Role Phone Judit Huizar APRN, C.N.P., D.N.P. P [facility] Care Provider Encounter Details Date Type Department Care Team (Late st Contact Info) Description 05/21/2022 Orders Only RST CCM [address] [place] [phone] [facility], Provider, MD Screening Test Laboratory Social History [...] 04/18/2022 How often do you attend chur ch or church services? 1 to 4 times per year 04/18/2022 Do you belong to any clubs o r organizations such as moravian groups, unions, fraternal or athletic groups, or [...] medical care, and heating? Not very hard 04/18/2022 PHQ-2 Answer Date Recorded PHQ-2 Score 0 09/10/2021 [facility] - Occupational Stress Questionnaire Answer Date Recorded [...] to strenuous exercise (like a brisk walk)? 6 days 04/18/2022 On average, how many minutes do you engage in exercise at this level? 30 min 04/18/2022 Hunger Vital Sign Answer Date Recorded Within the past 12 months, y ou worried that your food would run out before you got the money to buy more. Never true 04/18/20 22 Within the past 12 months, t he food you bought just didn't last and you didn't have money to get more. Never true 04/18/2022 PRAPARE - Transportation Answer Date Re corded In the past 12 months, has l ack of transportation kept you from medical appointments or from getting medications? No 12/2021 In the past 12 months, has l ack of transportation kept you from meetings, work, or from getting things needed for daily living? No 04/18/2022 Housing Stability Vital Sign Answer Brenden e Recorded In the last 12 months, was t here a time when you were not able to pay the mortgage or rent on time? Yes 04/18/2022 In the last 12 months, how many places have you lived? 1 04/18/2022 In the last 12 months, was t here a time when you did not have a steady place to sleep or slept in a longterm (including now)? No 04/18/2022 Depression Answer Date Recor ded PHQ-9 Total Score (max 27) 0 10/24 Nutrition Answer Date Recorded Nutrition: EVOO Fat Source No 04/18 On average, how many serving s of fruits and vegetables do you eat per day (serving size is equal to 1 cup or approximately the size of a tennis ball)? 2-3 04/18/2022 Dental Answer Date Recorded Dental: Regular Dentist Yes 04/18/20 Employment Answer Date Recorded Employment status Employed and actively working without restrictions 04/18/2022 Education Answer Date Recorded What is the highest level of school you have completed or the highest degree you have received? 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 on file Not on file documented as of this encounter Plan of Treatment Not on file documented as of this encounter Visit Diagnoses Diagnosis Screening Test Laboratory documented in this encounter Additional Health Concerns Infection Onset Date Last Indicated Resolved Time COVID19 Pending 05/22/2022 05/22/2022 05/22/2022 3 :01 PM REFRIGERATING OILER COVID19 Pending 05/22/2022 05/22/2022 05/22/2022 3 :50 PM REFRIGERATING OILER Assessment Noted Time PHQ-9 Depression Total Score: 0 10/25/19 20 4:18 PM CDT documented as of this encounter Care Teams Live In Housekeeper Relationship Specialty Start Date End Date Du-Judit Finn APRN, C.N.P., D.N.P. [address] [place] [phone] PCP - General 12/19/23 documented as of this encounter
--- NOTE | 2024-10-08 12:27 | ED_ITS ---
HPI - General Adult General Date Seen: 10/08/24 Chief complaint: Vaginal Bleeding Stated complaint: 4 months , bleeding Time Seen by Provider: 10/08/24 12:00 History of Present Illness HPI narrative: Patient is a 28-year-old woman here for evaluation of vaginal bleeding. She is , she had a baby in June, preeclampsia, no bleeding complications afterwards although she says she had and ongoing bleeding until an IUD was placed about 6 weeks . Since then she has been having periods which last 12-13 days, generally they have been at heavy until the. That started yesterday which was heavier. She changed her tampon for 5 times over night and twice this morning although she says it has now settled down. She has not have significant pain. Denies fevers or chills. No anticoagulation. Column is health and was advised to come to the ER. Related Data Home Medications ?Medication ?Instructions ?Recorded ?Confirmed PNV 153-FA 400 mcg-om3 35 mg-dha 1 tab PO DAILY 11/28/23 08/03/24 25 mg-epa 5 mg-fish oil chew tablet ( Gummies) lisdexamfetamine 30 mg capsule 40 mg PO QDAY 11/28/23 08/03/24 ascorbic acid (vitamin C) 500 mg 500 mg PO .QS 12/19/23 08/03/24 capsule cholecalciferol (vitamin D3) 25 25 mcg PO QDAY 07/02/24 08/03/24 mcg (1,000 unit) capsule Previous Rx's ?Medication ?Instructions ?Recorded acetaminophen 500 mg tablet 1,000 mg (2 x 500 mg) PO Q6H PRN 06/20/24 Pain #30 tabs docusate sodium 100 mg capsule 100 mg PO DAILY #30 caps 06/20/24 ferrous sulfate 325 mg (65 mg 325 mg PO Q48H #30 tabs 06/20/24 iron) tablet nifedipine 30 mg tablet,extended 30 mg PO QDAY #30 tabs 06/25/24 release clotrimazole 1 % topical cream 1 applic topical BID #45 grams 07/16/24 Allergies Allergy/AdvReac Type Severity Reaction Status Date / Time nitrofurantoin (From Allergy Intermediate Anaphylaxis Verified 08/03/24 18:04 Macrobid) Review of Systems Status of ROS: Reports: 10 or more systems reviewed and unremarkable except as noted in History and below PFSH PFSH Medical History (Updated 10/08/24 @ 13:48 by Hope Herrera MD) Non-reassuring electronic monitoring tracing ?O36.8390 - Maternal care for abnormalities of the heart rate or rhythm, unspecified trimester, not applicable or unspecified (ICD-10) ?Z34.90 - Encounter for supervision of normal , unspecified, unspecified trimester (ICD-10) Preeclampsia ?O14.90 - Unspecified pre-eclampsia, unspecified trimester (ICD-10) ADHD ?F90.9 - Attention-deficit hyperactivity disorder, unspecified type (ICD-10) Vapes nicotine containing substance ?Z72.0 - Tobacco use (ICD-10) Tobacco abuse ?Z72.0 - Tobacco use (ICD-10) Symptomatic tachycardia ?R00.0 - Tachycardia, unspecified (ICD-10) Obesity (BMI 30-39.9) ?E66.9 - Obesity, unspecified (ICD-10) Surgical History (Updated 06/22/24 @ 00:01 by Mina Rodríguez) History of placement of ear tubes ?Z96.22 - Myringotomy tube(s) status (ICD-10) Finger teeth extracted ?K08.409 - Partial loss of teeth, unspecified cause, unspecified class (ICD- 10) History of tonsillectomy and adenoidectomy ?Z90.89 - Acquired absence of other organs (ICD-10) Family History Brother Alcohol dependence Maternal Grandmother Breast cancer Mother Skin cancer Social History Narrative: SOCIAL Education: [employer], and some college 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 Caffeine: occasional, pop Drug Use: Denies past/present Chicken Pox: Yes as a child MRSA: Denies What is your current living situation?: I presently have a place to live Problems where you live: no known problems In the past 12 months, utilities in danger of being shut off: no In past 12 months, lack of transportation kept you from medical appts, meetings, work, or getting things needed for daily living: no In the past 12 mos, have been you worried that your food would run out before you had money to buy more?: never true In the past 12 mos, the food you bought just didn't last and you didn't have money to buy more?: never true Smoking Status: Former smoker How often does anyone, including family, friends and others, physically hurt you : never How often does anyone, including family, friends and others, insult or talk down to you: never How often does anyone, including family, friends and others, threaten you with harm: never How often does anyone, including family, friends and others, scream or curse at you: never Exam Narrative: Exam Narrative: Vital signs reviewed In general, alert, nontoxic Head: Normocephalic, atraumatic. Eyes: Sclera clear. Pupils equal and reactive. ENT: Mucous membranes moist. Neck: Supple without adenopathy. Heart: Regular rate and rhythm without murmur. Lungs: Clear. No increased work of breathing, crackles or wheezes. Abdomen: Soft, nontender to palpation. Extremities: Well perfused, pulses intact. No significant edema. Neurologic: Alert, conversant. Speech fluent, face symmetric. Moves all extremities equally. Skin: Warm, dry well perfused. Affect: Normal. Const: Vital Signs, click to edit/add: Vital Signs - 24 hr 10/08/24 10:38 Pulse Rate [Pulse Oximeter] 114 H Respiratory Rate 18 Blood Pressure [Ri ght Upper Arm] 122/87 Pulse Oximetry 99 Course Course ED Course: Will check a hemoglobin, test, ultrasound. Confer with on-call gynecology when those results are back. Right now she is not having heavy bleeding or cramping, does not need specific intervention. Diagnostic considerations would be heavy menses, ectopic , IUD migration, retained products, among others. test is negative, hemoglobin is reassuring at 13.8. Her ultrasound shows the IUD to be in the uterus but now positioned in the lower uterine segment. Case discussed with Dr. Jiang who recommends removal and reinsertion in clinic. Discussed with the patient. At this time it is reasonable to let her go home. If she is having increased bleeding she can return to the ER at any time, otherwise encouraged her to make an appointment with Women's Health for definitive treatment of this. Vital Signs Vital signs: Initial Vital Signs Pulse Rate 114 H 10/08/24 10:38 Pulse Rhythm Regular 10/08/24 10:38 Respiratory Rate 18 10/08/24 10:38 Blood Pressure 122/87 10/08/24 10:38 Blood Pressure Mean 98 10/08/24 10:38 Blood Pressure Position Sitting 10/08/24 10:38 Pulse Oximetry 99 10/08/24 10:38 Vital Signs Pulse Rate 114 H 10/08/24 10:38 Respiratory Rate 18 10/08/24 10:38 Blood Pressure 122/87 10/08/24 10:38 Pulse Oximetry 99 10/08/24 10:38 Pulse Rate 114 H 10/08/24 10:38 Respiratory Rate 18 10/08/24 10:38 Blood Pressure 122/87 10/08/24 10:38 Pulse Oximetry 99 10/08/24 10:38 Medical Decision Making Lab Data Lab results reviewed: Yes I reviewed the patient's lab results Labs: Lab Results 10/08/24 Range/Units 13:19 WBC 8.21 (4.50-11.00) K/uL RBC 5.24 H (4.00-5.20) m/uL Hgb 13.8 (12.0-16.0) gm/dL Hct 43.1 (33.0-51.0) % MCV 82 (80-100) fL MCH 26 (26-34) pg MCHC 32 (32-36) gm/dL RDW Coeff of [place] 14.4 (11.5-15.5) % Plt Count 321 (140-440) K/uL Neut % (Auto) 56.7 (42.0-72.0) % Lymph % (Auto) 31.8 (20-44) % [place] % (Auto) 7.9 (0.0-11.0) % Eos % (Auto) 3.0 (0.0-7.0) % Baso % (Auto) 0.6 (0.0-3.0) % Neut # (Auto) 4.65 (1.7-7.0) K/uL Lymph # (Auto) 2.61 (0.90-2.90) K/uL [place] # (Auto) 0.60 (0.00-0.90) K/UL Eos # (Auto) 0.25 (0.00-0.50) K/uL Baso # (Auto) 0.05 (0.00-0.30) K/uL Abs Immat Gran (auto) 0.00 (0.00-0.30) K/uL Imm/Tot Granulo (auto) 0.0 % HCG, Qual Negative (Negative) Imaging Data Pelvic ultrasound: Attestation: I have reviewed the pertinent imaging results. Radiologist's impression: [place] [address] Diagnostic Imaging Report Patient: Ashia Alvarez MR#: [id number] : 1995 Acct:[id number] Loc: ED Service Date: 10/08/[address]: Ordering Physician: Hope Herrera M.D. Date of Service: 10/08/24 Procedure(s): US pelvic transvaginal Accession Number(s): [id number] cc: Hope Herrera M.D.; Provider,Not a Local~ For Patients: As a result of the Cures Act, medical imaging exams and procedure reports are released immediately into your electronic medical record. You may view this report before your referring provider. If you have questions, please contact your health care provider. Indication: 4 MONTHS POST , IUD, BLEEDING Technique: Real-time sonographic images of the pelvis were obtained transvaginally utilizing grayscale, color, and Doppler imaging. Comparison: 11/28/2023. Findings: Uterus: Appearance: Intrauterine device is seen in the lower uterine segment with the right arm superiorly within the endometrium and the left arm angled anteriorly near the section scar. Position: Anteverted. Size: 7.5 x 3.5 x 4.3 cm. Endometrial stripe: 11 mm. Right ovary: Size: 3.5 x 1.5 x 2.3 cm. Appearance: Normal morphology. No masses. Preserved blood flow. Left ovary: Size: 4.0 x 1.3 x 2.9 cm. Appearance: Normal morphology. No masses. Preserved blood flow. Free fluid: None. Impression: 1. Intrauterine device is seen in the lower uterine segment with the right arm superiorly within the endometrium and the left arm angled anteriorly near the section scar. Consider repositioning. Discharge Plan Discharge Clinical Impression: Abnormal vaginal bleeding, Malpositioned IUD Patient Disposition: Home, Self-Care Condition: Stable Instructions: Abnormal (Dysfunctional) Uterine Bleeding (ED) Additional Instructions: Please call and make a follow-up appointment with Women's Health so that your IUD can be removed and replaced if you would like. This is likely why you are having heavier/irregular periods. Return at any time if needed. Prescriptions: No Action Gummies 400 mcg-35 mg- 25 mg-5 mg tablet,chewable 1 tab PO DAILY lisdexamfetamine 30 mg capsule 40 mg PO QDAY cholecalciferol (vitamin D3) 25 mcg (1,000 unit) capsule 25 mcg PO QDAY ascorbic acid (vitamin C) 500 mg capsule 500 mg PO .QS clotrimazole 1 % cream 1 applic topical BID Qty: 45 0RF acetaminophen 500 mg Tablet 1,000 mg PO Q6H PRN (Reason: Pain) Qty: 30 0RF ferrous sulfate 325 mg (65 mg iron) Tablet 325 mg PO Q48H Qty: 30 0RF docusate sodium 100 mg Capsule 100 mg PO DAILY Qty: 30 0RF nifedipine 30 mg tablet extended release 30 mg PO QDAY Qty: 30 1RF Follow Up/Referrals: Provider,Not a Local [Primary Care Provider] - Stand Alone Forms: [facility] Info Instructions
[2024-10-08 13:23] LABS: Basophils Absolute Auto 0.05 K/uL (0.00-0.30); Basophils Percent Auto 0.6 % (0.0-3.0); Eosinophils Absolute Auto 0.25 K/uL (0.00-0.50); Hematocrit 43.1 % (33.0-51.0); Hemoglobin* 13.8 gm/dL (12.0-16.0); Lymphocytes Absolute Auto 2.61 K/uL (0.90-2.90); Lymphocytes Percent Auto 31.8 % (20-44); Mean Corpuscular HGB Conc 32 gm/dL (32-36); Mean Corpuscular Hemoglobin 26 pg (26-34); Mean Corpuscular Volume 82 fL (80-100); Monocytes Percent Auto 7.9 % (0.0-11.0); Neutrophils Absolute Auto 4.65 K/uL (1.7-7.0); Neutrophils Percent Auto 56.7 % (42.0-72.0); Platelet Count* 321 K/uL (140-440); RDW Coefficient of Variation % 14.4 % (11.5-15.5); Red Blood Count 5.24 m/uL (4.00-5.20); Slide Review Reflex No; White Blood Count* 8.21 K/uL (4.50-11.00)
[2024-10-08 13:57] LABS: HCG Qualitative Serum* Negative (Negative)
== END 2024-10-08 13:56 | disposition home or self-care (01) ==
PROVIDERS: Emergency Provider Emergency Medicine
DX: T83.89XA Other specified complication of genitourinary prosthetic devices, implants and grafts, initial encounter (principal); N93.9 Abnormal uterine and vaginal bleeding, unspecified
CPT/HCPCS: 36415; 76830; 84703; 85025; 99284